=== PATIENT | male | born 1960 | race Hispanic/Latino ===

== ENCOUNTER 2020-06-28 15:55 | Inpatient (IN) | payer SELFPAY ==
[~2020-06-28 15:55] MED LIST: Iopamidol-370 76% 500 ML 1 ML ONE
[2020-06-28 16:20] LABS: #Eosinphils 0.2 thou/uL (0.0-0.7); #Lymphocytes 1.4 thou/uL (1.20-3.40); #Monocytes 0.5 thou/uL (0.11-0.59); #Neutrophils 2.3 thou/uL (1.40-6.50); %Basophils 1.1 % (0.0-1.0); %Eosinophils 4.1 % (0.0-10.0); %Lymphocytes 31.3 % (21.0-51.0); %Monocytes 10.4 % (0.0-10.0); %Neutrophils 53.1 % (42.0-75.0); Hemoglobin 12.3 g/dL (14.0-18.0); Mean Corpuscular HGB CONC 32.7 g/dL (32.0-36.0); Mean Corpuscular Hemoglobin 33.6 pg (27.0-31.0); Mean Platelet Volume 8.6 fL (7.4-10.4); Platelet Count 153 thou/uL (130-400); RBC Distribution Width 12.2 % (11.5-14.5); Red Blood Cell (RBC) Count 3.66 mill/uL (4.70-6.10); White Blood Cell (WBC) Count 4.3 thou/uL (4.8-10.8)
[2020-06-28 16:26] LABS: INR-International Normal Ratio 1.2; PTT 39.4 sec (22.9-36.1); Prothrombin Time 15.9 sec (12.0-14.7)
[2020-06-28 16:31] LABS: ALT (SGPT) 32 U/L (8-55); AST (SGOT) 141 U/L (5-34); Alkaline Phosphatase 147 U/L (40-110); Anion Gap 16 mmol/L (10-20); BUN (Urea Nitrogen) 5 mg/dL (8.4-25.7); Bilirubin, Total 2.1 mg/dL (0.2-1.2); Calc. Creatinine Clearance 0 mL/min (70-130); Calcium 8.3 mg/dL (7.8-10.44); Carbon Dioxide 20 mmol/L (22-29); Chloride 105 mmol/L (98-107); Estimated GFR-MDRD Greater than 90; Globulin 4.1 g/dL (2.4-3.5); Glucose 149 mg/dL (70-105); Potassium 3.7 mmol/L (3.5-5.1); Protein, Total 7.1 g/dL (6.0-8.3); Sodium 137 mmol/L (136-145)
[2020-06-28] MEDS ORDERED: Boostrix 0.5 ML (Tdap) VIAL ONE (16:34)
--- NOTE | 2020-06-28 16:34 | CT ---
Exam: CT cervical spine without contrast HISTORY: Trauma. Pain. COMPARISON: None FINDINGS: No craniocervical dissociation. Appropriate alignment of the lateral masses of C1 and C2. Intact odon toid process Appropriate alignment of the facets. Straightening of normal cervical lordosis may be due to patient position, muscle spasm or cervical co llar. Current study does not assess for ligamentous injury Soft tissue neck structures: No mass, lymphadenopathy or hematoma. No prevertebral soft tissue swelli ng. Upper mediastinum and lung apices: Chronic changes in the lung parenchyma Central spinal canal: Moderate central canal stenosis at C5-C6 secondary to broad-based discussed by complex. There is severe bilateral neural foraminal narrowing at C5-6-6. Vertebral bodies: Cervical spine vertebral body height is maintained. No fracture. IMPRESSION: 1. No fracture. 2. Significant degenerative changes at C5-C6.
--- NOTE | 2020-06-28 16:44 | CT ---
EXAM: CT Facial Bones WO Con PROVIDED CLINICAL HISTORY: Injury after a fall. Level 2 trauma. Patient fell 12 feet from a roof. COMPARISON: None FINDINGS: There is a nondisplaced fracture involving the midline anterior frontal bone as well as a nondisplace d fracture which is closely adjacent to a right craniotomy defect involving the squamosal portion of the right temporal bone with the fracture extending to the level of the craniotomy defect. There i s step-off of the more posterior aspect of the craniotomy defect which could be acute in origin as there is adjacent scalp soft tissue swelling in this region. There is a evidence of increased density within the right cerebral hemisphere as well as in the anter ior left frontal lobe compatible with areas of subarachnoid hemorrhage possibly tiny component of subdural hemorrhage on the left. Findings are better visualized on CT scan of the head, and please se e that report for further details. No fracture is seen involving the facial bones. There are periapical lucencies involving the posterio r left mandibular molar as well as incisor teeth of the maxilla bilaterally suggesting periapical abscesses. The temporomandibular joints are normally located. The orbits are normal and symmetric in appearance without post septal inflammatory stranding or hemor rhage appreciated. Minimal mucosal thickening is seen in each maxillary antrum. IMPRESSION: 1. Better delineated and described on CT scan of the head is evidence of an obliquely oriented fractu re involving the midline of the lower anterior frontal bone which extends into the lateral right frontal bone and into the right craniotomy defect. There is also a nondisplaced fracture involving th e squamosal portion of the right temporal bone with the fracture extending to the level of the craniotomy defect. There is also step-off in the region of the craniotomy defect which could be postt raumatic in origin as well. Scalp soft tissue swelling is seen overlying the right lateral frontal parietal region. 2. Evidence of subarachnoid hemorrhage in the bifrontal regions. This is better visualized on CT scan of the head. 3. No fracture is seen involving the facial bones. 4. Periapical lucencies involving mandibular maxillary teeth as described above suggesting periapical abscesses.
--- NOTE | 2020-06-28 16:50 | CT ---
Exam: Chest CT with contrast Abdomen CT with contrast Pelvic CT with contrast CT of the thoracic and lumbar spine HISTORY: Level 2 trauma. Fell off the roof of the house. Pain. Correlation: None COMPARISON: None FINDINGS: Chest CT: Mediastinum: No mass, lymphadenopathy or hematoma. Aorta: The thoracic and abdominal aorta have a normal caliber. No periaortic fat stranding Heart: Normal heart size. No significant pericardial effusion. Trachea and central bronchi: Patent Pleural spaces: No pleural effusions Right lung: Dependent atelectatic changes and scarring. No consolidation, contusion or suspicious mas s Left lung:Dependent atelectatic changes and scarring. No consolidation, contusion or suspicious mass Pneumothorax: None Abdomen CT: Gallbladder: Cholelithiasis, measuring 2.[address] evidence of cholecystitis. Portal vein: Patent Liver: Appropriate enhancement. Spleen: Appropriate enhancement. Splenomegaly, measuring 15 cm. Pancreas: Appropriate enhancement Adrenal glands: Appropriate enhancement Lymphadenopathy: No gastrohepatic, retrocrural or periportal lymphadenopathy Kidneys: Symmetric enhancement. No obstructive uropathy. Hypodensity in the right renal cortex measur es 1.7 cm/s hypodensity in the right renal cortex measures 2.5 cm. Both lesions are compatible with cyst. Subcentimeter hypodensity in the left. Bilaterally no obstructive uropathy. Mesentery: No mass, lymphadenopathy, free air or free fluid Alimentary canal: Limited evaluation by the lack of oral contrast. No small bowel obstruction. There is mild mucosal prominence of multiple small bowel loops. Correlate for developing enteritis involving jejunum. Ileocecal junction is normal. Fatty infiltration of the right hemicolon mucosa. Sc attered diverticulosis, without radiculitis. Appendix is not appreciated. No secondary signs of cholecystitis. Pelvis CT: No mass, nephropathy, free air or free fluid. Osseous structures: CHEST: Bilateral clavicles, scapula and proximal humeri are intact. There are no left acute rib fract ures. Remote rib fractures involving the posterior left ninth and 10th ribs. There are nondisplaced fractures involving the medial right second and third ribs near the costovertebral articulation. Inta ct sternum. Pelvis: Left and right obturator rings, iliac wings are intact. Sacrum is intact. No evidence of a le ft or right hip fracture. CT of the thoracic and lumbar spine: Vertebral body heights are maintained. No fracture. IMPRESSION: 1. Nondisplaced fracture involving the medial right second and third rib. 2. No posttraumatic change in the abdomen or pelvis. 3. Indeterminate lesions in the right kidney. Follow-up exam recommended Results study discussed with Dr. Zavala 06/28/2020 at 4:47 PM Code CR
--- NOTE | 2020-06-28 16:53 | CT ---
CT BRAIN NONCONTRAST: DATE: 06/28/2020 HISTORY: 59-year-old male status post acute head trauma, fall from roof of house Dr. Del Rosario discussed the findings by telephone with Dr. Lopez of the ER at 4:39 PM 06/28/2020 COMPARISON: none FINDINGS: There are old right lateral craniotomy changes involving the parietal bone and squamosal portion of t emporal bone. The posterior aspect of the craniotomy flap is medially displaced a distance of 5 to 6 mm, mildly dis placing adjacent right parietal gyri. Abutting the posterior edge of this displacement, a small rotated mildly comminuted fracture fragment is present straddling the intracranial and extracranial s paces. There is a minimally displaced acute linear right posterior parietal bone fracture located a couple o f centimeters posterior to the posterior edge of the displaced craniotomy flap. There is a nondisplaced acute right frontal bone fracture that superiorly leads to the anterior edge of the craniotomy, and inferiorly approaches midline. There are small regions of traumatic subarachnoid hemorrhage in the right lateral and upper parietal sulci. Within the lateral aspect of a small-moderate patchy region of right suprasylvian lateral frontal lob e encephalomalacia and gliosis, there is a small horizontal strip of hyperdensity which may represent acute blood. There is a broad thin region of left anterior inferior frontal subarachnoid hemorrhage and possibly a djacent petechial cortical hemorrhage. There is a right upper parietal scalp hematoma. No evidence of epidural or subdural hemorrhage. Ventricles are normal in size and configuration. No other significant mass effect, and no midline shift. Basal cisterns are patent. Diffuse brain parenchymal volume loss. Bilateral tympanomastoid cavities and the ethmoid and sphenoid sinuses, are clear. Frontal sinuses ar e nonpneumatized, aplastic. IMPRESSION: 1) acute, traumatic, nondisplaced right frontal bone fracture, and minimally displaced right posterio r parietal bone fracture. 2) the posterior aspect of a right old craniotomy flap is depressed medially. This is probably acute, associated tiny focal comminuted fragment. 3) mild, acute, traumatic right parietal subarachnoid hemorrhage. 4) mild to moderate acute, traumatic left anterior inferior frontal frontal subarachnoid hemorrhage a nd questionable petechial cortical hemorrhage. 5) small region of hyperdensity within a right lateral frontal region of encephalomalacia and gliosis . This probably represents a small focus of acute hemorrhage superimposed on the old insult. 6) no subfalcine herniation.
--- NOTE | 2020-06-28 17:06 | RAD ---
RIGHT KNEE FOUR VIEWS: 06/28/20 HISTORY: Fell off of a roof. There are marked arthritic changes of the knee. Prominent degenerative changes of the lateral and les ser changes of the medial and patellofemoral compartments. There is no fracture. Vascular calcificati ons are seen. IMPRESSION: No acute injury. POS: ANN
--- NOTE | 2020-06-28 17:07 | RAD ---
LEFT HAND THREE VIEWS: 06/28/20 HISTORY: Patient is status post fall with hand injury. COMPARISON: 12/21/07 study. An old injury of the tuft of the distal phalanx of the thumb are noted. Arthritic changes of the hand and wrist are present. No fractures are identified. IMPRESSION: No evidence of fracture. POS: ANN
--- NOTE | 2020-06-28 21:07 | HP ---
This is Stuart Hills PA-C dictating a report for Brendanrajinder Yogi Green DO. REQUESTING PHYSICIAN: Dr. Lopez. CONSULTATIONS: Neurosurgery, Dr. Sidhu. HISTORY OF PRESENT ILLNESS: The patient is a 59-year-old man, who was brought to the emergency department after reportedly falling off a 1st molly roof that he was working on. Reports are that bystanders did CPR on him for approximately 1 minute. When EMS arrived, the patient was awake, alert and chief complaint was headache. The patient was brought to the emergency department as a level 2 trauma activation, where he underwent evaluation and examination, was noted to have a skull fracture and subarachnoid hemorrhage, which time we were asked to evaluate the patient for admission and obtain neurosurgical consultations. ALLERGIES: NONE. CURRENT MEDICATIONS: None. PAST MEDICAL HISTORY: The patient states that he is diabetic, but does not take medicines for it. PAST SURGICAL HISTORY: Patient had previous brain surgery approximately 10 years ago. SOCIAL HISTORY: The patient states he drinks 3-4 beers per day. He denies drug or tobacco use. He is employed as a labor. He is Vincentian-speaking only. REVIEW OF SYSTEMS: A 10-point review of systems is negative as otherwise stated. PHYSICAL EXAMINATION: VITAL SIGNS: Blood pressure 145/87, heart rate 99, respirations 23, oxygen saturation is 96% on room air, temperature is 98.6. GENERAL: The patient is resting comfortably in bed. He is awake, conversant, appropriate. [place] Coma Scale is 15. Of note, a nurses medical assistants phlebotomists was used for the examination. HEENT. Head is normocephalic with abrasions noted to the right side of his scalp and small area of hematoma. Eyes, extraocular motion intact. PERRLA bilaterally. Ears are atraumatic without discharge. Nose is atraumatic without discharge. Oropharynx is clear. NECK: Nontender. Trachea is midline. No JVD. CHEST: Clear to auscultation with good inspiratory and expiratory effort. HEART: Regular rate and rhythm. ABDOMEN: Soft, flat, nontender with active bowel sounds. EXTREMITIES: Neurovascularly intact x4. The patient has good circuit court clerk strength and plantar flexion. The patient does have "pins and needles sensation" to his left upper extremity that has been improving. BACK: By report is atraumatic and nontender. LABORATORY FINDINGS: White blood cell count 4.3, hemoglobin 12.3, hematocrit 37.6, platelets 153. Sodium 137, potassium 3.7, chloride 105, CO2 of 20, BUN 5, creatinine 0.86, glucose 149, total bilirubin 2.1, AST 141, ALT 32, alkaline phosphatase 147, PT 16, INR 1.2, PTT 39. Blood alcohol 59. IMAGIN. CT of the brain without contrast shows acute traumatic nondisplaced right frontal bone fracture and minimally displaced right posterior parietal bone fracture. a. Posterior aspect of the right old craniotomy flap is depressed medially. This is probably acute associated tiny focal comminuted fragment. b. Mild, acute traumatic right parietal subarachnoid hemorrhage. c. [id number] acute traumatic left anterior inferior frontal subarachnoid hemorrhage and questionable petechial cortical hemorrhage. d. Small region of hyperdensity in the right lateral frontal region of encephalomalacia and gliosis. This probably represented a small focus of acute hemorrhage superimposed on the old insult. There is no subfalcine herniation. 2. CT of the face without contrast shows no acute fracture involving the facial bones. 3. CT of the C-spine without contrast shows no fracture. There is significant degenerative changes at C5-C6. 4. CT of the chest, abdomen, and pelvis with IV contrast shows a nondisplaced fracture involving the medial right 2nd and 3rd rib. There is no posttraumatic changes in the abdomen or pelvis. There is an indeterminate lesion involving the right kidney with routine followup recommended. Views of the right knee show no acute injury. Views of the left hand show no evidence of fracture. ASSESSMENT/PLAN: 1. Status post fall from roof. 2. Subarachnoid hemorrhage. 3. Skull fracture. 4. Nondisplaced fracture involving the medial right 2nd and 3rd ribs. 5. Altered mental status secondary to above. PLAN: Plan will be to admit the patient to the [facility] for frequent neuro exams with repeat head CT planned for the morning, sooner if the patient has not changed in his [place] Coma Scale. He will have pain control, pulmonary toilet, gastritis, and mechanical VTE prophylaxis. The patient was evaluated in the emergency department by MYRIAM Schwartz who scheduled his followup CT. The patient may have clear liquid diet. We will re-evaluate in the morning and begin discussing placement options. The patient was evaluated in the emergency department by Dr. Green prior to this dictation. Job ID: [id number]
[2020-06-28] MEDS ORDERED: Cyclobenzaprine 10 MG TAB PO PRN (21:39)
[2020-06-28] MEDS ORDERED: Dextrose 5% in Water 1,000 ML IV PRN (21:39)
[2020-06-28] MEDS ORDERED: traMADol HCl 50 MG TAB PO PRN (21:39)
[2020-06-28] MEDS ORDERED: Ondansetron PF 4 MG/2 ML Vial IVP PRN (21:39)
[2020-06-28] MEDS ORDERED: Dextrose 50% Abboject 50 ML SYRINGE SLOW IVP PRN (21:39)
[2020-06-28] MEDS ORDERED: Insulin Regular 300 UNITS/3 ML VIAL SC PRN ×2 (21:39)
[2020-06-28] MEDS ORDERED: Ondansetron ODT 4 MG TAB PO PRN (21:39)
[2020-06-28] MEDS: Acetaminophen 500 MG TAB PO SCH (23:20)
[2020-06-28] MEDS: Famotidine 20 MG TAB PO SCH (23:20)
[2020-06-28] MEDS: Oxazepam 10 MG CAP PO SCH (23:20)
[2020-06-28] MEDS: Sodium Chloride 0.9% 1,000 ML IV SCH (23:21)
[2020-06-29 00:19] VITALS: BMI 31.0
--- NOTE | 2020-06-29 01:33 | CON ---
DATE OF CONSULTATION: 06/28/2020 HISTORY OF PRESENT ILLNESS: Patient is a 59-year-old male, with a past medical history of EtOH abuse with prior right-sided craniotomy approximately 10 years ago possibly due to trauma or infection (family and pt is unsure), who presented to the emergency department via EMS after falling off a story roof. Patient was evaluated with trauma scans on arrival and found to have fracture along the right parietal bone and along the right frontal bone extending towards the midline as well as traumatic subarachnoid hemorrhage along the left frontal region and left parietal region. There is slight displacement of the right craniotomy flap inferiorly, particularly on the posterior aspect. There is a small amount of traumatic subarachnoid hemorrhage around the posterior displacement, in the right parietal lateral, and left frontal anterior regions. Patient with a GCS of 15, A and O x4, nonfocal in his neurologic exam. I used a crystal finisher during this exam and questioning the patient. He does drink approximately 3 to 12 beers per day per his daughter. His INR is 1.2. His platelets were within normal limits. PTT was 39.4 and PT was 15.9- both slightly elevated. His LFTs were also slightly elevated as well. Patient also has several rib fractures. He is being evaluated by the Trauma Service. Neurosurgery consulted for his intracranial injuries. PAST MEDICAL HISTORY: Chronic EtOH abuse, right-sided craniotomy approximately 10 years ago for a possible trauma. PAST SURGICAL HISTORY: Right-sided craniotomy 10 years ago. SOCIAL HISTORY: Patient lives at home with his family. He drinks approximately 3 to 12 beers per day. Denies any drug use. He does not smoke. REVIEW OF SYSTEMS: Per HPI. PHYSICAL EXAMINATION: VITAL SIGNS: Stable. BP is 145/87, pulse is 99, respirations 23, temperature is 98.6, and patient is 96% on room air. GENERAL: Awake, alert, in no acute distress. Oriented x3. HEAD: He has some soft tissue swelling and abrasion along the right parietal aspect. There is no obvious laceration that would require repair or would that would represent open fx. EYES: PERRLA. Extraocular movements intact. ENT: [place], intact, moist. He has normal voice. No obvious CSF or otorhinorrhea. NECK: Nontender. Free active range of motion. No meningismus or nuchal rigidity. I cleared his C-collar at the bedside during my exam. RESPIRATORY: Symmetric chest expansion. No evidence of dyspnea. CARDIOVASCULAR: Regular rate and rhythm. MUSCULOSKELETAL: Has some abrasions along the left upper extremity. No obvious deformities. Free active range of motion of the extremities. No focal motor weakness. NEUROLOGIC: Oriented x3. GCS 15. Grossly nonfocal neuro exam. ASSESSMENT AND PLAN: Patient had a fall from a roof and has a fracture along the right parietal and right frontal bone with some slight displacement of the right craniotomy flap as well as some traumatic subarachnoid hemorrhage along the left frontal and right parietal region. Patient does not reportedly take any anticoagulants and should not be given any during his admission or once he is discharged. I do not anticipate any acute neurosurgical intervention at this time. We will monitor him closely overnight with q.2 neuro checks and keep his blood pressure systolic below 150. I have ordered a repeat a.m. CT for additional evaluation at 5 tomorrow morning. Defer ETOH abuse and chance for wd to trauma. Discussed this plan with Dr. Sidhu, who is in agreement and will follow along. Job ID: [id number] MTDD
[2020-06-29 03:37] LABS: #Eosinphils 0.1 thou/uL (0.0-0.7); #Lymphocytes 0.8 thou/uL (1.20-3.40); #Monocytes 0.4 thou/uL (0.11-0.59); #Neutrophils 2.1 thou/uL (1.40-6.50); %Basophils 0.9 % (0.0-1.0); %Eosinophils 1.9 % (0.0-10.0); %Lymphocytes 24.6 % (21.0-51.0); %Monocytes 12.5 % (0.0-10.0); %Neutrophils 60.1 % (42.0-75.0); Hemoglobin 10.3 g/dL (14.0-18.0); Mean Corpuscular HGB CONC 33.6 g/dL (32.0-36.0); Mean Corpuscular Hemoglobin 34.4 pg (27.0-31.0); Mean Platelet Volume 8.4 fL (7.4-10.4); Platelet Count 119 thou/uL (130-400); RBC Distribution Width 12.1 % (11.5-14.5); Red Blood Cell (RBC) Count 2.99 mill/uL (4.70-6.10); White Blood Cell (WBC) Count 3.4 thou/uL (4.8-10.8)
[2020-06-29 03:52] LABS: Anion Gap 11 mmol/L (10-20); BUN (Urea Nitrogen) 4 mg/dL (8.4-25.7); Calc. Creatinine Clearance 165 mL/min (70-130); Calcium 7.6 mg/dL (7.8-10.44); Carbon Dioxide 22 mmol/L (22-29); Chloride 106 mmol/L (98-107); Estimated GFR-MDRD Greater than 90; Glucose 132 mg/dL (70-105); Potassium 3.4 mmol/L (3.5-5.1); Sodium 136 mmol/L (136-145)
[2020-06-29] MEDS: Oxazepam 10 MG CAP PO SCH ×3 (07:02→20:43)
[2020-06-29] MEDS: Acetaminophen 500 MG TAB PO SCH ×4 (07:02→23:43)
[2020-06-29] MEDS: Sodium Chloride 0.9% 1,000 ML IV SCH (07:03)
--- NOTE | 2020-06-29 08:12 | CT ---
PRELIMINARY REPORT/DIRECT RADIOLOGY/EMERGENCY AFTER HOURS PROCEDURE: EXAM: CT Head Without Intravenous Contrast. CLINICAL HISTORY: F/u tSAH TECHNIQUE: Axial computed tomography images of the head/brain without intravenous contrast. COMPARISON: None provided. FINDINGS: There remains surgical changes from right lateral parietal craniotomy. There remains some medial displacement of the craniotomy flap. Traumatic subarachnoid hemorrhage in the right lateral side again noted and unchanged. There remains left anterior frontal subarachnoid hemorrhage. Minima l petechial hemorrhages in this region are noted and unchanged. No new hemorrhages identified. The ventricles remain normal and no midline displacement. The basilar cisterns are maintained. Ther e is a significant right upper parietal and temporal scalp hematoma. IMPRESSION: No significant change in the patient's traumatic subarachnoid hemorrhage in the right lat eral temporal parietal region. There remains no change in left anterior frontal subarachnoid hemorrhage. Minimal petechial hemorrhages noted in the left frontal region unchanged. No new hemorrh age or hematoma. Large right upper parietal and temporal scalp hematoma. ELECTRONICALLY SIGNED BY: Micaela Alba DO Jun 29, 2020 4:40:51 AM EXCEL ANALYST FINAL REPORT CT BRAIN WITHOUT CONTRAST: History: Hemorrhage. Comparison: CT examination prior day. Findings/impression: Majority of the findings are concordant with the initial report. There is new subarachnoid hemorrhage along the right inferior frontal sulcus. The right parietal subarachnoid hemorrhage has slightly increased. Continued depression of the craniotomy bone flap and superimposed right parietal bone fracture which is not significantly impacted. There is also a sagittally oriented right frontal bone fracture without significant depression or displacement. Left frontal subarachnoid hemorrhages partial resolving. Concern for intraparenchymal hemorrhage of t he anterior left temporal lobe. Mild right parietotemporal sulcal effacement. Patient is at risk for brain herniation through the pos terior right craniotomy defect. Transcribed Date/Time: 06/29/2020 8:17 AM
[2020-06-29] MEDS ORDERED: Potassium Chloride 20 MEQ/100 ML PREMIX BAG IVPB SCH (08:15)
--- NOTE | 2020-06-29 08:15 | RAD ---
XR Chest 1 View Portable History: Follow-up Comparison: None. Findings: Lungs are mildly hypoinflated with atelectasis. No pneumothorax. No significant effusion. Right upper rib fractures are not further displaced. Impression: No further displacement of rib fractures nor new pneumothorax.
[2020-06-29] MEDS: Famotidine 20 MG TAB PO SCH ×2 (09:20→19:22)
[2020-06-29] MEDS ORDERED: Potassium Chloride 20 MEQ TAB PO SCH (11:15)
--- NOTE | 2020-06-29 12:32 | PRG ---
DATE OF SERVICE: 06/29/2020 SUBJECTIVE: The patient is seen and examined, I agree with Michelle Azevedo's evaluation on 06/28/2020. The patient is a 59-year-old male with a history of a prior right-sided craniotomy 10 years ago for trauma, who fell off his roof yesterday, striking the right side of his head. He is currently alert and without complaints and was interviewed in the company of his daughter, who translated. The daughter reports that she is noticing he is slurring slightly more than he had been previously. The patient's CT scan reveals some depression of the right parietal skull flap from the previous surgery as well as some right parietal traumatic subarachnoid hemorrhage, this was stable on followup CT. IMPRESSION AND PLAN: The patient can safely be mobilized for dismissal. I will plan on a four-week followup head CT. He will likely have a mild cosmetic deformity related to depression in the right parietal flap, but I do not think this mandates elevation. Discussed this at length with the patient and his daughter. Job ID: [id number]
[2020-06-29] MEDS ORDERED: Magnesium Sulfate 2 GM in Sodium Chloride 0.9% 100 ML IVPB SCH (13:45)
[2020-06-29] MEDS ORDERED: Magnesium 2 GM/50 ML 2 GM in Premix Bag 1 BAG IVPB SCH (14:00)
--- NOTE | 2020-06-29 14:05 | PRG ---
DATE OF SERVICE: 06/29/2020 The patient was seen by Dr. Peña Green. SUBJECTIVE: Mr. Wray is a 59-year-old male, presented status post fall from one story roof at work, reports bystander CPR for 1 minute. The patient found to have a skull fracture and subarachnoid hemorrhage. The patient had a previous craniectomy with a flap replacement, this is where he had a fracture. This morning, he is awake and alert, he is watching television. Repeat head CT generally unchanged. The patient states that he is in no pain including no headache, no nausea, no vomiting, no dizziness. He is hungry and wants a full diet. He is tolerating his clear-liquid diet well. Remained hemodynamically stable. Neurosurgery has cleared the patient. OBJECTIVE: VITAL SIGNS: Temperature is 97.9, blood pressure 146/80, heart rate is 72, breathing 16 times per minute, and 96% on room air. GENERAL: A 59-year-old male, sitting up, in no acute distress. Nontoxic appearing. HEENT: Does have a slight deformity to the right skull with an abrasion. Trachea is midline. RESPIRATORY: Equal rise and fall. Bilateral breath sounds clear to auscultation of upper and lower lobes bilaterally. CARDIOVASCULAR: Regular rate and rhythm. ABDOMEN: Soft and nontender. PELVIS: Stable. MUSCULOSKELETAL: Moves extremities well. NEUROLOGIC: Alert and oriented to person, place, time, and event. GCS is 15. No gross deficits are appreciated. PSYCHIATRIC: Normal mood and affect. SKIN: Warm and dry. LABORATORY DATA: From today: White blood cell count 3.4, platelets are 119, and hemoglobin and hematocrit are 10.3 and 30.6 respectively. Sodium is 136, potassium 3.4, chloride is 106, CO2 is 22, creatinine 0.65, glucose 132, and calcium is 7.6. Magnesium of 1.7. Chest x-ray generally unchanged. ASSESSMENT: 1. Fall from roof. 2. Subarachnoid hemorrhage with skull fracture. 3. Nondisplaced fracture involving the medial right 2nd and 3rd ribs. 4. Altered mental status, has improved. PLAN: 1. Move the patient to Surgery [facility]. 2. Routine neuro exams. 3. Pain control as needed. 4. Hope to discharge in the ensuing days as soon as the patient is able to ambulate, tolerates the diet, spontaneously voids. We will be able to discharge tomorrow, follow up with Neurosurgery, or possibly even later this afternoon. 5. Continue all other supportive care. Discussed with the bedside RN, updated the patient, discussed with Dr. Sidhu with Neurosurgery. Job ID: [id number]
[2020-06-29 15:09] LABS: SARS-CoV-2 MS2 Positive; SARS-CoV-2 N Gene Negative; SARS-CoV-2 S Gene Negative; SARS-CoV-2 by NAA Not Detected (NotDetected); SARS-CoV-2 orf1ab Negative
[2020-06-29] MEDS: traMADol HCl 50 MG TAB PO PRN (19:22)
[2020-06-30] MEDS: Acetaminophen 500 MG TAB PO SCH (05:06)
[2020-06-30] MEDS: Oxazepam 10 MG CAP PO SCH (05:06)
[2020-06-30] MEDS: traMADol HCl 50 MG TAB PO PRN (05:07)
[2020-06-30 07:58] VITALS: BP 139/79; TEMP 97.8
[2020-06-30] MEDS: Famotidine 20 MG TAB PO SCH (08:39)
--- NOTE | 2020-06-30 12:51 | DIS ---
DATE OF ADMISSION: 06/28/2020 DATE OF DISCHARGE: 06/30/2020 DISCHARGING PHYSICIAN: Claude Jim MD. CONSULTING PHYSICIAN: 1. Dr. Peña Green. 2. Dr. Sidhu with Neurosurgery. ADMITTING DIAGNOSES: 1. Fall from roof. 2. Subarachnoid hemorrhage. 3. Skull fracture. 4. Right rib fractures. DISCHARGE DIAGNOSES: 1. Fall from roof. 2. Subarachnoid hemorrhage. 3. Skull fracture. 4. Right rib fractures. Nonoperative approach. DISCHARGE MEDICATIONS: Tylenol every 6 hours as needed. HOSPITAL COURSE: Patient was admitted through the emergency department, admitted to the [facility] for close neuro-checks. Neurosurgery was consulted. No interventions at this time. Repeat head CT on hospital day #1 shows no change in his scattered subarachnoid hemorrhage. Mental status returned to baseline. Patient was sitting up, watching TV. He did have a little bit as left-sided deficit about his face and possibly some slurred speech that improved throughout the day. Neurosurgery was notified of this likely secondary to his right-sided subarachnoid hemorrhage. No skull fracture. No other intervention at this time. Patient tolerated diet well. He has ambulated. He was listing apparently a little bit on hospital day #1 to the left. On the date of discharge, I was able to walk the patient in the hallway, had a steady gait on his own accord with no change in gait. He reports no dizziness, no change in vision, no nausea, no vomiting, no chest pain, no shortness of air. His SpO2 is preserved. Patient feels well and requests discharge. I have discussed follow up and he verbalized understanding as Dr. Sidhu told him about the followup and he was able to repeat the same. Patient was advised to not climb ladders specifically if he was drinking given his skull fracture and verbalized understanding of the same. He remained stable on the date of discharge. PHYSICAL EXAMINATION: VITAL SIGNS: On date of discharge vital signs; temperature is 98.8, blood pressure is 139/79, heart rate is 75, respiratory rate is 18, breathing 18 times per minute, and saturating 100% on room air. GENERAL: This is a 59-year-old male sitting up in no acute distress. HEENT: Normocephalic. Does have trauma noted about the right skull. Slight depression is noted. No active bleeding. No blood from the ears or nares. Pupils are equal and reactive. Extraocular movements are intact. Trachea is midline. RESPIRATORY: Equal rise and fall. Bilateral breath sounds. Clear to auscultation. CARDIOVASCULAR: Regular rate and rhythm. ABDOMEN: Soft and nontender. Pelvis is stable. MUSCULOSKELETAL: He moves extremities well. NEUROLOGIC: Alert and oriented to person, place, time, and event. GCS is 15. He does have slight facial droop about the left. Otherwise, cranial nerves 2 through 12 are normal. He has a normal gait that is steady and stable. SKIN: Warm and dry. PSYCH: Normal mood and affect. LABORATORY DATA: There is no laboratory data aside from a glucose of 162 to review today. Followup will be with Dr. Sidhu in 2 to 4 weeks. Patient verbalized understanding the same. This was placed in the chart. Patient was given opportunity to answer questions. He has a ride that is coming. All questions were answered at the bedside through an news writer. Patient was given return precautions including worsening headache, dizziness, trouble walking, shortness of breath, chest pain, verbalized understanding of the same and was able to repeat this back, coordinated with the bedside RN. Greater than 30 minutes was taken in discharge planning of this patient. Job ID: [id number]
== END 2020-06-30 12:55 | disposition home or self-care (01) | DRG 83 ==
LOC: ERS 15:55 → IMCU/EMU 16:59 → ONC 06-29 11:34
PROVIDERS: ADMIT Surgery; ATTEND Surgery
DX: S06.6X9A Traumatic subarachnoid hemorrhage with loss of consciousness of unspecified duration, initial encounter (principal); S22.41XA Multiple fractures of ribs, right side, initial encounter for closed fracture; Z20.828 Contact with and (suspected) exposure to other viral communicable diseases; W13.2XXA Fall from, out of or through roof, initial encounter; S02.91XA Unspecified fracture of skull, initial encounter for closed fracture; R40.2413 Glasgow coma scale score 13-15, at hospital admission; F10.10 Alcohol abuse, uncomplicated; E11.9 Type 2 diabetes mellitus without complications
CPT/HCPCS: 36415; 36416; 70450; 70486; 71045; 71260; 72125; 74177; 80048; 80053; 80307; 83735; 85025; 85610; 85730; 87635; 90471; 90715; 96365; G0390; J0690; J3475; Q9967; U0003

== ENCOUNTER 2020-08-31 12:49 | Outpatient (CLI) | payer OTHER ==
--- NOTE | 2020-08-31 13:24 | CT ---
Head CT without contrast 08/31/2020: COMPARISON: 06/29/2020 HISTORY: History of subdural hematoma status post surgery, trauma in June 2020 TECHNIQUE: Axial CT imaging at 5 mm intervals from vertex through skull base without contrast FINDINGS: The visualized paranasal sinuses and mastoid air cells appear well-aerated. Stable multifocal displaced calvarial fracture on the right with stable inferior posterior depression . There is nondisplaced fracture component involving the anterior aspect of the right frontal bone, best seen on axial image 12, stable as well. The 06/29/2020 CT examination demonstrated scattered areas of bilateral extra-axial hemorrhage. On th is exam the previously noted left frontal and right frontal subarachnoid hemorrhage has resolved. There is no midline shift or mass effect. Extra-axial hemorrhage noted on the prior examination withi n the left middle cranial fossa has resolved. On this examination there is subdural increased density in the right frontal region measuring up to 3 mm in transverse dimension on axial image 12 an d 3-4 mm on axial image 18. These findings are most consistent with a very small right-sided subdural hematoma. A degree of dural thickening in this region is a possibility as well IMPRESSION: Small volume residual subdural hemorrhage in the right frontal region measuring up to 3-4 mm in transverse dimension. No midline shift or mass effect. Multiple areas of previously noted intracranial hemorrhage have resolved as described above. CODE T
== END 2020-08-31 12:50 | disposition home or self-care (01) ==
LOC: BICCT 12:49
PROVIDERS: ATTEND Neurological Surgery
DX: S06.6X9D Traumatic subarachnoid hemorrhage with loss of consciousness of unspecified duration, subsequent encounter (principal)
CPT/HCPCS: 70450

== ENCOUNTER 2020-12-30 15:08 | Inpatient (IN) | payer MEDICAID, SELFPAY ==
[~2020-12-30 15:08] MED LIST changes: +Succinylcholine 200 MG/10 ml SYRINGE FS ONE
[2020-12-30 17:14] LABS: #Lymphocytes 0.4 thou/uL (1.20-3.40); #Monocytes 0.4 thou/uL (0.11-0.59); %Basophils 0.4 % (0.0-1.0); %Eosinophils 0.2 % (0.0-10.0); %Lymphocytes 7.8 % (21.0-51.0); %Monocytes 7.5 % (0.0-10.0); %Neutrophils 84.1 % (42.0-75.0); Hemoglobin 8.7 g/dL (14.0-18.0); Mean Corpuscular HGB CONC 31.7 g/dL (32.0-36.0); Mean Corpuscular Hemoglobin 29.3 pg (27.0-31.0); Mean Corpuscular Volume 92.6 fL (78.0-98.0); Mean Platelet Volume 11.7 fL (7.4-10.4); Platelet Count 34 thou/uL (130-400); RBC Distribution Width 17.1 % (11.5-14.5); Red Blood Cell (RBC) Count 2.95 mill/uL (4.70-6.10); White Blood Cell (WBC) Count 4.7 thou/uL (4.8-10.8)
[2020-12-30] MEDS ORDERED: Octreotide Acetate 100 MCG/ML VIAL SLOW IVP SCH (17:15)
[2020-12-30] MEDS ORDERED: Octreotide Acetate 1,250 MCG in Sodium Chloride 0.9% 250 ML 250 ML IVPB SCH (17:15)
[2020-12-30 17:19] LABS: INR-International Normal Ratio 2.2; PTT 49.4 sec (22.9-36.1); Prothrombin Time 25.1 sec (12.0-14.7)
[2020-12-30 17:26] LABS: Anisocytosis SLIGHT = 6-15 cells (100X) (0-5/hpf); MDiff Complete? YES; Platelet Morphology Comment Appears Decreased; Polychromasia SLIGHT = 2-3 cells (100X) (0-2/hpf)
[2020-12-30] MEDS ORDERED: Lorazepam 2 MG/ML VIAL ONE (17:26)
[2020-12-30] MEDS ORDERED: cefTRIAXone\\ROCEPHIN 1 GM VIAL ONE (17:27)
[2020-12-30] MEDS ORDERED: Octreotide Acetate 100 MCG/ML VIAL ONE (17:27)
[2020-12-30] MEDS ORDERED: Ondansetron PF 4 MG/2 ML Vial ONE (17:27)
[2020-12-30] MEDS ORDERED: Pantoprazole 40 MG VIAL ONE (17:27)
[2020-12-30 17:34] LABS: ALT (SGPT) 18 U/L (8-55); AST (SGOT) 113 U/L (5-34); Albumin 2.4 g/dL (3.5-5.0); Alkaline Phosphatase 162 U/L (40-110); Anion Gap 19 mmol/L (10-20); BUN (Urea Nitrogen) 12 mg/dL (8.4-25.7); Bilirubin, Total 5.5 mg/dL (0.2-1.2); Calc. Creatinine Clearance 0 mL/min (70-130); Calcium 7.4 mg/dL (7.8-10.44); Carbon Dioxide 19 mmol/L (22-29); Chloride 93 mmol/L (98-107); Globulin 3.8 g/dL (2.4-3.5); Glucose 163 mg/dL (70-105); Lipase 19 U/L (8-78); Magnesium 1.6 mg/dL (1.6-2.6); Potassium 4.3 mmol/L (3.5-5.1); Protein, Total 6.2 g/dL (6.0-8.3); Sodium 127 mmol/L (136-145)
[2020-12-30] MEDS ORDERED: Pantoprazole 80 MG, Admixture Fee 1 EACH in Sodium Chloride 0.9% 100 ML IVPB SCH (19:30)
[2020-12-30] MEDS ORDERED: Ondansetron PF 4 MG/2 ML Vial IVP PRN (20:22)
[2020-12-30 20:28] LABS: #Lymphocytes 0.7 thou/uL (1.20-3.40); #Monocytes 0.4 thou/uL (0.11-0.59); #Neutrophils 3.8 thou/uL (1.40-6.50); %Basophils 0.5 % (0.0-1.0); %Eosinophils 0.1 % (0.0-10.0); %Lymphocytes 14.3 % (21.0-51.0); %Monocytes 8.2 % (0.0-10.0); Hemoglobin 7.5 g/dL (14.0-18.0); Mean Corpuscular HGB CONC 32.9 g/dL (32.0-36.0); Mean Corpuscular Hemoglobin 30.5 pg (27.0-31.0); Mean Corpuscular Volume 92.6 fL (78.0-98.0); Mean Platelet Volume 11.5 fL (7.4-10.4); Platelet Count 26 thou/uL (130-400); Red Blood Cell (RBC) Count 2.46 mill/uL (4.70-6.10); White Blood Cell (WBC) Count 4.9 thou/uL (4.8-10.8)
[2020-12-30] MEDS ORDERED: Magnesium 2 GM/50 ML 2 GM in Premix Bag 1 BAG IVPB SCH (20:30)
[2020-12-30] MEDS ORDERED: Calcium Gluconate 100 MG/ML 10 ML IVPB SCH (20:30)
[2020-12-30] MEDS ORDERED: Sodium Bicarbonate 150 MEQ in Dextrose 5% in Water 1,000 ML IV SCH (20:30)
[2020-12-30] MEDS ORDERED: Calcium Gluconate 4.6 MEQ in Sodium Chloride 0.9% 100 ML IVPB SCH (20:45)
[2020-12-31 04:25] LABS: #Lymphocytes 0.5 thou/uL (1.20-3.40); #Monocytes 0.3 thou/uL (0.11-0.59); #Neutrophils 3.4 thou/uL (1.40-6.50); %Basophils 0.2 % (0.0-1.0); %Eosinophils 0.1 % (0.0-10.0); %Lymphocytes 12.2 % (21.0-51.0); %Monocytes 7.9 % (0.0-10.0); %Neutrophils 79.6 % (42.0-75.0); Hemoglobin 8.2 g/dL (14.0-18.0); Mean Corpuscular Hemoglobin 30.5 pg (27.0-31.0); Mean Corpuscular Volume 92.4 fL (78.0-98.0); Mean Platelet Volume 11.2 fL (7.4-10.4); Platelet Count 25 thou/uL (130-400); RBC Distribution Width 16.6 % (11.5-14.5); Red Blood Cell (RBC) Count 2.69 mill/uL (4.70-6.10); White Blood Cell (WBC) Count 4.2 thou/uL (4.8-10.8)
[2020-12-31 04:39] LABS: ALT (SGPT) 19 U/L (8-55); AST (SGOT) 107 U/L (5-34); Albumin 2.4 g/dL (3.5-5.0); Alkaline Phosphatase 135 U/L (40-110); Anion Gap 20 mmol/L (10-20); BUN (Urea Nitrogen) 18 mg/dL (8.4-25.7); Calc. Creatinine Clearance 82 mL/min (70-130); Calcium 7.3 mg/dL (7.8-10.44); Carbon Dioxide 16 mmol/L (22-29); Chloride 99 mmol/L (98-107); Globulin 3.8 g/dL (2.4-3.5); Glucose 162 mg/dL (70-105); Potassium 4.7 mmol/L (3.5-5.1); Protein, Total 6.2 g/dL (6.0-8.3); Sodium 130 mmol/L (136-145)
[2020-12-31] MEDS ORDERED: Furosemide 20 MG/2 ML VIAL SLOW IVP SCH (06:00)
[2020-12-31 06:14] LABS: SARS-CoV-2 NAA Rapid Test Not Detected (NotDetected)
[2020-12-31] MEDS: Pantoprazole 80 MG in Sodium Chloride 0.9% 100 ML IVPB SCH ×2 (06:54→16:56)
[2020-12-31] MEDS: Nicotine 14 MG PATCH TD SCH ×2 (07:10→21:26)
[2020-12-31 07:49] LABS: Hemoglobin 7.8 g/dL (14.0-18.0); Mean Corpuscular HGB CONC 32.4 g/dL (32.0-36.0); Mean Corpuscular Hemoglobin 29.9 pg (27.0-31.0); Mean Corpuscular Volume 92.2 fL (78.0-98.0); Mean Platelet Volume 11.1 fL (7.4-10.4); Platelet Count 27 thou/uL (130-400); RBC Distribution Width 16.5 % (11.5-14.5); Red Blood Cell (RBC) Count 2.61 mill/uL (4.70-6.10); White Blood Cell (WBC) Count 3.5 thou/uL (4.8-10.8)
[2020-12-31] MEDS: Albumin 25% 25 GM/100 ML BOT IVPB SCH ×2 (08:01→17:24)
[2020-12-31 08:26] LABS: Band 2 % (5-11); Eosinophils 3 % (0-10); Hypochromia SLIGHT = 6-15 cells (100X) (0-5/hpf); Lymphocytes 15 % (21-51); MDiff Complete? YES; Monocytes 10 % (0-10); Neutrophil 70 % (42-75); Ovalocytes SLIGHT = 2-5 cells (100X) (0-1/hpf); Platelet Morphology Comment Appears Decreased; Polychromasia SLIGHT = 2-3 cells (100X) (0-2/hpf)
[2020-12-31 11:54] LABS: #Lymphocytes 0.5 thou/uL (1.20-3.40); #Monocytes 0.3 thou/uL (0.11-0.59); %Basophils 0.2 % (0.0-1.0); %Lymphocytes 16.9 % (21.0-51.0); %Monocytes 9.5 % (0.0-10.0); %Neutrophils 73.4 % (42.0-75.0); Hemoglobin 7.3 g/dL (14.0-18.0); Mean Corpuscular Hemoglobin 30.2 pg (27.0-31.0); Mean Corpuscular Volume 91.5 fL (78.0-98.0); Mean Platelet Volume 10.7 fL (7.4-10.4); Platelet Count 24 thou/uL (130-400); RBC Distribution Width 16.6 % (11.5-14.5); Red Blood Cell (RBC) Count 2.41 mill/uL (4.70-6.10); White Blood Cell (WBC) Count 2.7 thou/uL (4.8-10.8)
[2020-12-31] MEDS ORDERED: Sodium Bicarbonate 150 MEQ in Dextrose 5% in Water 1,000 ML IV SCH (13:15)
[2020-12-31] MEDS ORDERED: Famotidine/PF 20 mg/2ml Vial ONE (14:18)
[2020-12-31] MEDS ORDERED: PHENYLEPHRINE-NS 100 MCG/ML 10 ML SYRINGE ONE (14:47)
[2020-12-31] MEDS ORDERED: Succinylcholine 200 MG/10 ml SYRINGE FS ONE (14:47)
[2020-12-31] MEDS ORDERED: Lidocaine 1% PF 5 ML VIAL ONE (14:47)
[2020-12-31] MEDS ORDERED: Ondansetron PF 4 MG/2 ML Vial ONE (14:47)
[2020-12-31] MEDS ORDERED: Metoclopramide HCl 10 MG/2 ML VIAL ONE (14:47)
[2020-12-31] MEDS ORDERED: Promethazine HCl 25 MG/ML VIAL IM PRN (15:32)
[2020-12-31] MEDS ORDERED: Promethazine HCl 25 MG/ML VIAL SLOW IVP PRN (15:32)
[2020-12-31] MEDS ORDERED: Ondansetron HCl/PF 4 MG/2 ML Vial IVP PRN (15:32)
[2020-12-31 16:20] LABS: #Lymphocytes 0.5 thou/uL (1.20-3.40); #Monocytes 0.2 thou/uL (0.11-0.59); %Basophils 0.3 % (0.0-1.0); %Eosinophils 0.3 % (0.0-10.0); %Lymphocytes 17.4 % (21.0-51.0); %Monocytes 8.9 % (0.0-10.0); %Neutrophils 73.2 % (42.0-75.0); Hemoglobin 7.1 g/dL (14.0-18.0); Mean Corpuscular HGB CONC 32.5 g/dL (32.0-36.0); Mean Corpuscular Hemoglobin 29.7 pg (27.0-31.0); Mean Corpuscular Volume 91.6 fL (78.0-98.0); Mean Platelet Volume 10.4 fL (7.4-10.4); Platelet Count 33 thou/uL (130-400); RBC Distribution Width 17.1 % (11.5-14.5); Red Blood Cell (RBC) Count 2.39 mill/uL (4.70-6.10); White Blood Cell (WBC) Count 2.7 thou/uL (4.8-10.8)
[2020-12-31 16:35] LABS: Albumin 2.6 g/dL (3.5-5.0); Anion Gap 13 mmol/L (10-20); BUN (Urea Nitrogen) 21 mg/dL (8.4-25.7); BUN/Creatinine Ratio 20.39; Calc. Creatinine Clearance 98 mL/min (70-130); Calcium 7.2 mg/dL (7.8-10.44); Carbon Dioxide 26 mmol/L (22-29); Chloride 99 mmol/L (98-107); Glucose 173 mg/dL (70-105); Phosphorus 2.5 mg/dL (2.3-4.7); Potassium 3.6 mmol/L (3.5-5.1); Sodium 134 mmol/L (136-145)
[2020-12-31] MEDS ORDERED: cefTRIAXone\\ROCEPHIN 1 GM in Sodium Chloride 0.9% 100 ML IVPB SCH (18:00)
[2020-12-31] MEDS ORDERED: Prevnar 13-Val Conj/PF 0.5 ML SYRINGE IM ONE (21:00)
[2020-12-31] MEDS: Lorazepam 2 MG/ML VIAL SLOW IVP PRN (21:21)
[2020-12-31] MEDS: Octreotide Acetate 1,250 MCG in Sodium Chloride 0.9% 250 ML 250 ML IVPB SCH (21:28)
[2020-12-31] MEDS ORDERED: Acetaminophen 325 MG TAB PO SCH (23:45)
[2021-01-01 01:40] LABS: Bacteria/HPF None Seen HPF (None Seen); Bilirubin Negative (Negative); Blood, Urine Negative (Negative); Clarity Clear (Clear); Glucose, Urine (Dipstick) Normal (Negative); Ketone, Urine Negative (Negative); Leukocyte 25 Leu/uL (Negative); Nitrite Negative (Negative); Protein, Urine (Dipstick) Negative (Neg-Trace); RBC/HPF 0-3 HPF (0-3); Specific Gravity, Urine 1.028 (1.002-1.036); Squamous Epithelial 0-3 HPF (0-3); WBC/HPF 0-3 HPF (0-3)
[2021-01-01 01:45] LABS: Urine Culture Reflex Yes Yes
[2021-01-01 02:00] LABS: Creatinine, Urine 113.51 mg/dL (63-166); Protein, Urine Random Quant Less than 10 mg/dL (1-14); Sodium, Urine 20 mmol/L (Not Available); Urea Nitrogen, Random Urine 799 mg/dl
[2021-01-01 02:27] LABS: #Lymphocytes 0.5 thou/uL (1.20-3.40); #Monocytes 0.3 thou/uL (0.11-0.59); #Neutrophils 1.6 thou/uL (1.40-6.50); %Basophils 0.3 % (0.0-1.0); %Eosinophils 0.6 % (0.0-10.0); %Lymphocytes 19.6 % (21.0-51.0); %Monocytes 10.8 % (0.0-10.0); %Neutrophils 68.6 % (42.0-75.0); Hemoglobin 7.4 g/dL (14.0-18.0); Mean Corpuscular HGB CONC 32.9 g/dL (32.0-36.0); Mean Corpuscular Hemoglobin 30.5 pg (27.0-31.0); Mean Corpuscular Volume 92.5 fL (78.0-98.0); Mean Platelet Volume 11.2 fL (7.4-10.4); Platelet Count 31 thou/uL (130-400); RBC Distribution Width 16.7 % (11.5-14.5); Red Blood Cell (RBC) Count 2.42 mill/uL (4.70-6.10); White Blood Cell (WBC) Count 2.3 thou/uL (4.8-10.8)
[2021-01-01] MEDS: Albumin 25% 25 GM/100 ML BOT IVPB SCH ×2 (02:32→08:00)
[2021-01-01 03:02] LABS: ALT (SGPT) 13 U/L (8-55); AST (SGOT) 89 U/L (5-34); Albumin 2.7 g/dL (3.5-5.0); Alkaline Phosphatase 107 U/L (40-110); Anion Gap 13 mmol/L (10-20); BUN (Urea Nitrogen) 21 mg/dL (8.4-25.7); Bilirubin, Total 5.5 mg/dL (0.2-1.2); Calc. Creatinine Clearance 113 mL/min (70-130); Calcium 7.4 mg/dL (7.8-10.44); Carbon Dioxide 28 mmol/L (22-29); Chloride 99 mmol/L (98-107); Globulin 3.3 g/dL (2.4-3.5); Glucose 122 mg/dL (70-105); Potassium 3.2 mmol/L (3.5-5.1); Sodium 137 mmol/L (136-145)
[2021-01-01 03:59] LABS: INR-International Normal Ratio 1.9; Prothrombin Time 22.5 sec (12.0-14.7)
[2021-01-01] MEDS: Pantoprazole 80 MG in Sodium Chloride 0.9% 100 ML IVPB SCH (04:52)
[2021-01-01] MEDS ORDERED: Electrolyte Replacement Protocol FS PRN (05:45)
[2021-01-01] MEDS ORDERED: Potassium Chloride 40 MEQ in Sodium Chloride 0.9% 250 ML 250 ML IVPB SCH (06:00)
[2021-01-01] MEDS ORDERED: Furosemide 20 MG/2 ML VIAL SLOW IVP SCH (06:00)
[2021-01-01 06:05] LABS: #Lymphocytes 0.5 thou/uL (1.20-3.40); #Monocytes 0.3 thou/uL (0.11-0.59); #Neutrophils 1.6 thou/uL (1.40-6.50); %Basophils 1.1 % (0.0-1.0); %Lymphocytes 21.1 % (21.0-51.0); %Monocytes 11.8 % (0.0-10.0); Hemoglobin 7.3 g/dL (14.0-18.0); Mean Corpuscular Hemoglobin 30.6 pg (27.0-31.0); Mean Corpuscular Volume 92.5 fL (78.0-98.0); Mean Platelet Volume 10.4 fL (7.4-10.4); Platelet Count 31 thou/uL (130-400); Red Blood Cell (RBC) Count 2.38 mill/uL (4.70-6.10); White Blood Cell (WBC) Count 2.5 thou/uL (4.8-10.8)
[2021-01-01] MEDS: Piperacillin/Tazobactam 3.375 GM in Sodium Chloride 0.9% 100 ML IVPB SCH ×4 (06:05→23:19)
[2021-01-01 06:20] LABS: Anion Gap 11 mmol/L (10-20); BUN (Urea Nitrogen) 20 mg/dL (8.4-25.7); Carbon Dioxide 29 mmol/L (22-29); Chloride 98 mmol/L (98-107); Potassium 3.3 mmol/L (3.5-5.1); Sodium 135 mmol/L (136-145)
[2021-01-01 06:21] LABS: ALT (SGPT) 17 U/L (8-55); AST (SGOT) 92 U/L (5-34); Albumin 2.9 g/dL (3.5-5.0); Alkaline Phosphatase 107 U/L (40-110); Bilirubin, Total 6.1 mg/dL (0.2-1.2); Calc. Creatinine Clearance 121 mL/min (70-130); Calcium 7.3 mg/dL (7.8-10.44); Globulin 3.3 g/dL (2.4-3.5); Glucose 135 mg/dL (70-105); Magnesium 1.8 mg/dL (1.6-2.6); Protein, Total 6.2 g/dL (6.0-8.3)
[2021-01-01] MEDS ORDERED: Norepinephrine 8 MG/0.9% NS 250 ML ONE ×2 (06:34→16:03)
[2021-01-01] MEDS ORDERED: Magnesium 2 GM/50 ML 2 GM in Premix Bag 1 BAG IVPB SCH (06:45)
[2021-01-01 06:49] LABS: Lactic Acid 1.6 mmol/L (0.5-2.2)
[2021-01-01] MEDS ORDERED: Propofol 1,000 MG/100 ML VIAL IV ONE (07:00)
[2021-01-01] MEDS ORDERED: Morphine 2 MG/ML VIAL SLOW IVP PRN (07:30)
[2021-01-01] MEDS ORDERED: Fentanyl BOLUS 250 ML IVPB PRN (07:30)
[2021-01-01] MEDS ORDERED: Propofol BOLUS 1,000 MG/100 ML VIAL IV PRN (07:30)
[2021-01-01] MEDS ORDERED: Fentanyl CADD 100 ML ONE (07:47)
[2021-01-01] MEDS: Lorazepam 2 MG/ML VIAL SLOW IVP PRN ×4 (07:54→23:19)
[2021-01-01] MEDS ORDERED: Vecuronium 10 MG VIAL ONE (08:10)
[2021-01-01 08:30] LABS: #Lymphocytes 0.2 thou/uL (1.20-3.40); #Monocytes 0.1 thou/uL (0.11-0.59); #Neutrophils 2.7 thou/uL (1.40-6.50); %Basophils 1.5 % (0.0-1.0); %Eosinophils 0.8 % (0.0-10.0); %Lymphocytes 6.9 % (21.0-51.0); %Monocytes 4.3 % (0.0-10.0); %Neutrophils 86.6 % (42.0-75.0); Hemoglobin 8.2 g/dL (14.0-18.0); Mean Corpuscular HGB CONC 31.8 g/dL (32.0-36.0); Mean Corpuscular Volume 94.5 fL (78.0-98.0); Mean Platelet Volume 10.2 fL (7.4-10.4); Platelet Count 34 thou/uL (130-400); RBC Distribution Width 17.2 % (11.5-14.5); Red Blood Cell (RBC) Count 2.72 mill/uL (4.70-6.10); White Blood Cell (WBC) Count 3.1 thou/uL (4.8-10.8)
[2021-01-01 09:12] LABS: Actual Bicarbonate (HCO3a) 29.1 mEq/L (22-28); Base Excess (BEa) 5.2 mEq/L (-2.0 to +3.0); CO2 Tension 39.9 mmHg (35.0-45.0); Calcium, Ionized (arterial) 0.96 mmol/L (1.12-1.30); Hemoglobin (Hb) 8.3 g/dL (14.0-18.0); O2 Tension (PaO2), arterial 61.2 mmHg (> 80.0); Potassium - ABG Lab 2.96 mmol/L (3.70-5.30); pH, Arterial 7.48 (7.35-7.45)
[2021-01-01 09:13] LABS: Puncture Site RRA
[2021-01-01 09:14] LABS: ALV-art Gradient 245.425 mmHg (0-20)
[2021-01-01] MEDS ORDERED: Vecuronium 10 MG VIAL IV SCH (10:00)
[2021-01-01] MEDS: HumaLOG 300 UNITS/3 ML VIAL SC PRN ×2 (10:53→16:49)
[2021-01-01] MEDS ORDERED: Spironolactone 100 MG TAB PO SCH (11:00)
[2021-01-01] MEDS: Multivitamins, Adult 10 ML, Folic Acid 1 MG in Dextrose 5 %-0.45 % NaCl 1,000 ML IV SCH ×2 (11:24→21:33)
[2021-01-01] MEDS: Thiamine HCl 200 MG/2 ML VIAL SLOW IVP SCH (11:25)
[2021-01-01 12:19] LABS: #Lymphocytes 0.3 thou/uL (1.20-3.40); #Monocytes 0.1 thou/uL (0.11-0.59); #Neutrophils 1.7 thou/uL (1.40-6.50); %Basophils 0.3 % (0.0-1.0); %Eosinophils 1.1 % (0.0-10.0); %Neutrophils 79.6 % (42.0-75.0); Hemoglobin 6.8 g/dL (14.0-18.0); Mean Corpuscular HGB CONC 32.5 g/dL (32.0-36.0); Mean Corpuscular Hemoglobin 30.5 pg (27.0-31.0); Mean Corpuscular Volume 93.6 fL (78.0-98.0); Mean Platelet Volume 8.8 fL (7.4-10.4); Platelet Count 38 thou/uL (130-400); RBC Distribution Width 16.8 % (11.5-14.5); Red Blood Cell (RBC) Count 2.23 mill/uL (4.70-6.10); White Blood Cell (WBC) Count 2.2 thou/uL (4.8-10.8)
[2021-01-01 13:26] LABS: Phosphorus 2.2 mg/dL (2.3-4.7)
[2021-01-01] MEDS ORDERED: EPINEPHrine 1 MG/10 ML Abboject SYRINGE ONE (13:55)
[2021-01-01] MEDS: Furosemide 40 MG/4 ML VIAL SLOW IVP SCH (14:20)
[2021-01-01 15:08] LABS: #Eosinphils 0.1 thou/uL (0.0-0.7); #Lymphocytes 0.4 thou/uL (1.20-3.40); #Monocytes 0.1 thou/uL (0.11-0.59); #Neutrophils 2.1 thou/uL (1.40-6.50); %Basophils 0.6 % (0.0-1.0); %Eosinophils 2.7 % (0.0-10.0); %Lymphocytes 15.9 % (21.0-51.0); %Neutrophils 75.8 % (42.0-75.0); Hemoglobin 7.9 g/dL (14.0-18.0); Mean Corpuscular HGB CONC 32.9 g/dL (32.0-36.0); Mean Corpuscular Hemoglobin 30.2 pg (27.0-31.0); Mean Corpuscular Volume 92.1 fL (78.0-98.0); Mean Platelet Volume 9.4 fL (7.4-10.4); Platelet Count 36 thou/uL (130-400); RBC Distribution Width 16.3 % (11.5-14.5); Red Blood Cell (RBC) Count 2.62 mill/uL (4.70-6.10); White Blood Cell (WBC) Count 2.7 thou/uL (4.8-10.8)
[2021-01-01 19:43] LABS: Hemoglobin 8.3 g/dL (14.0-18.0); Platelet Count 38 thou/uL (130-400)
[2021-01-01] MEDS: Octreotide Acetate 1,250 MCG in Sodium Chloride 0.9% 250 ML 250 ML IVPB SCH (19:46)
[2021-01-01] MEDS: Nicotine 14 MG PATCH TD SCH (20:59)
[2021-01-01] MEDS: Vecuronium 10 MG VIAL IV PRN (21:00)
[2021-01-02] MEDS ORDERED: Fentanyl CADD 100 ML ONE ×2 (01:18→20:07)
[2021-01-02] MEDS: Propofol 1,000 MG/100 ML VIAL IV PRN ×3 (01:28→19:09)
[2021-01-02] MEDS: Fentanyl CADD 100 ML IV SCH ×2 (02:41→22:10)
[2021-01-02] MEDS: Norepinephrine 8 MG/0.9% NS 250 ML IVPB SCH ×3 (03:05→18:25)
[2021-01-02] MEDS: Pantoprazole 80 MG, Admixture Fee 1 EACH in Sodium Chloride 0.9% 100 ML IVPB SCH ×2 (03:50→07:41)
[2021-01-02] MEDS: Vecuronium 10 MG VIAL IV PRN (04:26)
[2021-01-02 04:35] LABS: ALT (SGPT) 14 U/L (8-55); AST (SGOT) 74 U/L (5-34); Albumin 2.7 g/dL (3.5-5.0); Alkaline Phosphatase 91 U/L (40-110); Anion Gap 13 mmol/L (10-20); BUN (Urea Nitrogen) 19 mg/dL (8.4-25.7); Bilirubin, Total 7.2 mg/dL (0.2-1.2); Calc. Creatinine Clearance 108 mL/min (70-130); Calcium 7.2 mg/dL (7.8-10.44); Carbon Dioxide 30 mmol/L (22-29); Chloride 99 mmol/L (98-107); Globulin 2.9 g/dL (2.4-3.5); Glucose 149 mg/dL (70-105); Iron 19 ug/dL (65-175); Iron Binding Capacity, Total 185 mcg/dL (261-462); Magnesium 1.7 mg/dL (1.6-2.6); Phosphorus 2.5 mg/dL (2.3-4.7); Protein, Total 5.6 g/dL (6.0-8.3); Sodium 139 mmol/L (136-145)
[2021-01-02 04:45] LABS: Band 41 % (5-11); Eosinophils 2 % (0-10); Hemoglobin 8.3 g/dL (14.0-18.0); Hypochromia SLIGHT = 6-15 cells (100X) (0-5/hpf); Lymphocytes 8 % (21-51); MDiff Complete? YES; Mean Corpuscular HGB CONC 32.4 g/dL (32.0-36.0); Mean Corpuscular Hemoglobin 30.1 pg (27.0-31.0); Mean Corpuscular Volume 92.8 fL (78.0-98.0); Mean Platelet Volume 10.3 fL (7.4-10.4); Monocytes 3 % (0-10); Neutrophil 45 % (42-75); Platelet Count 40 thou/uL (130-400); Platelet Morphology Comment Appears Decreased; Potassium 2.7 mmol/L (3.5-5.1); Red Blood Cell (RBC) Count 2.75 mill/uL (4.70-6.10); White Blood Cell (WBC) Count 4.3 thou/uL (4.8-10.8)
[2021-01-02 04:51] LABS: Ferritin 85.59 ng/mL (22-322)
[2021-01-02] MEDS: Furosemide 40 MG/4 ML VIAL SLOW IVP SCH (05:04)
[2021-01-02] MEDS: Piperacillin/Tazobactam 3.375 GM in Sodium Chloride 0.9% 100 ML IVPB SCH ×4 (05:04→23:06)
[2021-01-02] MEDS: HumaLOG 300 UNITS/3 ML VIAL SC PRN ×2 (05:07→22:12)
[2021-01-02 05:12] LABS: HBCM Index 0.08 S/CO (0-0.79); HBSAg Index 0.22 S/CO (0-0.99); Hep A IgM AB Non-Reactive (NonReactive); Hep A IgM S/CO 0.11 S/CO (0-0.79); Hep B Surf Ag Non-Reactive S/CO (NonReactive); Hep C IgG Ab Non-Reactive (NonReactive); Hep C Index 0.19 S/CO (0-0.79); Hepatitis B Core IgM Abs Non-Reactive (NonReactive)
[2021-01-02] MEDS ORDERED: Magnesium 2 GM/50 ML 2 GM in Premix Bag 1 BAG IVPB SCH (05:30)
[2021-01-02 07:02] LABS: Actual Bicarbonate (HCO3a) 32.6 mEq/L (22-28); Base Excess (BEa) 8.4 mEq/L (-2.0 to +3.0); CO2 Tension 43.4 mmHg (35.0-45.0); Calcium, Ionized (arterial) 0.97 mmol/L (1.12-1.30); Carboxyhemoglobin (COHb) 0.4 gm% (0.0-3.0); Hemoglobin (Hb) 9.4 g/dL (14.0-18.0); Potassium - ABG Lab 2.47 mmol/L (3.70-5.30); pH, Arterial 7.49 (7.35-7.45)
[2021-01-02] MEDS: Lorazepam 2 MG/ML VIAL SLOW IVP PRN ×4 (07:04→20:15)
[2021-01-02] MEDS: Potassium Chloride 40 MEQ in Premix Bag 1 BAG IVPB SCH ×2 (07:05→09:50)
[2021-01-02 07:06] LABS: O2 Tension (PaO2), arterial 48.2 mmHg (> 80.0); Puncture Site RRA
[2021-01-02] MEDS: Multivitamins, Adult 10 ML, Folic Acid 1 MG in Dextrose 5 %-0.45 % NaCl 1,000 ML IV SCH ×2 (07:06→23:06)
[2021-01-02] MEDS: Octreotide Acetate 1,250 MCG in Sodium Chloride 0.9% 250 ML 250 ML IVPB SCH ×2 (07:06→20:15)
[2021-01-02] MEDS: Spironolactone 100 MG TAB PO SCH (07:46)
[2021-01-02] MEDS: Albumin 25% 25 GM/100 ML BOT IVPB SCH ×3 (10:31→20:15)
[2021-01-02] MEDS: Thiamine HCl 200 MG/2 ML VIAL SLOW IVP SCH (10:31)
[2021-01-02 11:36] LABS: ANA Symphony (Qualitative) Negative (Negative); ANA Symphony (Quantitative) 0.3 Ratio (< 0.7 Negative); EliA Vaculitis New Method **** NEW METHOD ****; Mitochondrial Ab 1.4 U/mL (<4 Negative); dsDNA IgG Antibody 0.8 IU/mL (<10 Negative)
[2021-01-02 17:25] LABS: Potassium 3.1 mmol/L (3.5-5.1)
[2021-01-02] MEDS ORDERED: Potassium Chloride 40 MEQ in Premix Bag 1 BAG IVPB SCH (18:45)
[2021-01-02] MEDS: Nicotine 14 MG PATCH TD SCH (20:15)
[2021-01-03 00:21] LABS: Potassium 3.1 mmol/L (3.5-5.1)
[2021-01-03] MEDS: Pantoprazole 80 MG, Admixture Fee 1 EACH in Sodium Chloride 0.9% 100 ML IVPB SCH ×3 (01:15→22:24)
[2021-01-03] MEDS ORDERED: Potassium Chloride 40 MEQ in Premix Bag 1 BAG IVPB SCH (03:00)
[2021-01-03] MEDS: Norepinephrine 8 MG/0.9% NS 250 ML IVPB SCH ×3 (03:04→19:28)
[2021-01-03] MEDS: Lorazepam 2 MG/ML VIAL SLOW IVP PRN ×4 (03:18→23:45)
[2021-01-03] MEDS: Propofol 1,000 MG/100 ML VIAL IV PRN ×2 (03:18→10:08)
[2021-01-03] MEDS: Albumin 25% 25 GM/100 ML BOT IVPB SCH ×2 (03:45→10:09)
[2021-01-03 05:05] LABS: ALT (SGPT) 13 U/L (8-55); AST (SGOT) 71 U/L (5-34); Alkaline Phosphatase 84 U/L (40-110); Anion Gap 11 mmol/L (10-20); BUN (Urea Nitrogen) 14 mg/dL (8.4-25.7); Bilirubin, Total 8.7 mg/dL (0.2-1.2); Calc. Creatinine Clearance 104 mL/min (70-130); Calcium 7.5 mg/dL (7.8-10.44); Carbon Dioxide 30 mmol/L (22-29); Chloride 100 mmol/L (98-107); Globulin 2.5 g/dL (2.4-3.5); Glucose 155 mg/dL (70-105); Magnesium 1.8 mg/dL (1.6-2.6); Phosphorus 1.8 mg/dL (2.3-4.7); Protein, Total 5.5 g/dL (6.0-8.3); Sodium 138 mmol/L (136-145)
[2021-01-03 05:08] LABS: Hemoglobin 7.9 g/dL (14.0-18.0); Mean Corpuscular HGB CONC 32.2 g/dL (32.0-36.0); Mean Corpuscular Hemoglobin 30.3 pg (27.0-31.0); Mean Corpuscular Volume 94.2 fL (78.0-98.0); Mean Platelet Volume 11.2 fL (7.4-10.4); Platelet Count 34 thou/uL (130-400); RBC Distribution Width 17.2 % (11.5-14.5); Red Blood Cell (RBC) Count 2.61 mill/uL (4.70-6.10); White Blood Cell (WBC) Count 3.7 thou/uL (4.8-10.8)
[2021-01-03 05:28] LABS: Band 1 % (5-11); Eosinophils 6 % (0-10); Lymphocytes 14 % (21-51); MDiff Complete? YES; Monocytes 12 % (0-10); Neutrophil 67 % (42-75); Platelet Morphology Comment Appears Decreased
[2021-01-03] MEDS: Piperacillin/Tazobactam 3.375 GM in Sodium Chloride 0.9% 100 ML IVPB SCH ×4 (05:44→23:45)
[2021-01-03] MEDS ORDERED: Magnesium 2 GM/50 ML 2 GM in Premix Bag 1 BAG IVPB SCH (05:45)
[2021-01-03] MEDS: Vecuronium 10 MG VIAL IV PRN (05:45)
[2021-01-03] MEDS ORDERED: Potassium Phosphate 15 MMOL in Sodium Chloride 0.9% 100 ML IVPB SCH (06:00)
[2021-01-03 06:57] LABS: Actual Bicarbonate (HCO3a) 27.2 mEq/L (22-28); Base Excess (BEa) 2.8 mEq/L (-2.0 to +3.0); CO2 Tension 41.1 mmHg (35.0-45.0); Calcium, Ionized (arterial) 1.03 mmol/L (1.12-1.30); Carboxyhemoglobin (COHb) 0.6 gm% (0.0-3.0); Hemoglobin (Hb) 8.4 g/dL (14.0-18.0); Potassium - ABG Lab 3.24 mmol/L (3.70-5.30); pH, Arterial 7.44 (7.35-7.45)
[2021-01-03 06:58] LABS: ALV-art Gradient 321.625 mmHg (0-20); O2 Tension (PaO2), arterial 54.8 mmHg (> 80.0); Puncture Site RRA
[2021-01-03] MEDS: Spironolactone 100 MG TAB PO SCH ×2 (08:03→20:23)
[2021-01-03] MEDS ORDERED: Potassium Phosphate 30 MMOL in Sodium Chloride 0.9% 500 ML IVPB SCH (09:00)
[2021-01-03] MEDS ORDERED: Potassium Phosphate 30 MMOL in Sodium Chloride 0.9% 250 ML 250 ML IVPB SCH (10:00)
[2021-01-03] MEDS: Octreotide Acetate 1,250 MCG in Sodium Chloride 0.9% 250 ML 250 ML IVPB SCH (10:08)
[2021-01-03] MEDS: Thiamine HCl 200 MG/2 ML VIAL SLOW IVP SCH (10:10)
[2021-01-03 15:50] LABS: Anion Gap 13 mmol/L (10-20); BUN (Urea Nitrogen) 13 mg/dL (8.4-25.7); Calc. Creatinine Clearance 115 mL/min (70-130); Calcium 7.8 mg/dL (7.8-10.44); Carbon Dioxide 29 mmol/L (22-29); Chloride 103 mmol/L (98-107); Glucose 138 mg/dL (70-105); Potassium 3.6 mmol/L (3.5-5.1); Sodium 141 mmol/L (136-145)
[2021-01-03] MEDS: Nicotine 14 MG PATCH TD SCH (20:23)
[2021-01-04] MEDS: Lorazepam 2 MG/ML VIAL SLOW IVP PRN ×5 (01:14→09:58)
[2021-01-04] MEDS: Norepinephrine 8 MG/0.9% NS 250 ML IVPB SCH ×2 (04:34→14:58)
[2021-01-04 04:40] LABS: Band 16 % (5-11); Eosinophils 7 % (0-10); Lymphocytes 8 % (21-51); MDiff Complete? YES; Mean Corpuscular HGB CONC 32.8 g/dL (32.0-36.0); Mean Corpuscular Hemoglobin 31.4 pg (27.0-31.0); Mean Corpuscular Volume 95.8 fL (78.0-98.0); Mean Platelet Volume 11.2 fL (7.4-10.4); Monocytes 26 % (0-10); Neutrophil 43 % (42-75); Platelet Count 30 thou/uL (130-400); Platelet Morphology Comment Appears Decreased; RBC Distribution Width 17.9 % (11.5-14.5); Red Blood Cell (RBC) Count 2.55 mill/uL (4.70-6.10); White Blood Cell (WBC) Count 4.4 thou/uL (4.8-10.8)
[2021-01-04] MEDS: Propofol 1,000 MG/100 ML VIAL IV PRN ×2 (04:46→18:36)
[2021-01-04] MEDS: Piperacillin/Tazobactam 3.375 GM in Sodium Chloride 0.9% 100 ML IVPB SCH ×3 (05:09→17:55)
[2021-01-04 05:17] LABS: ALT (SGPT) 16 U/L (8-55); AST (SGOT) 75 U/L (5-34); Alkaline Phosphatase 87 U/L (40-110); Anion Gap 9 mmol/L (10-20); BUN (Urea Nitrogen) 15 mg/dL (8.4-25.7); Bilirubin, Total 10.2 mg/dL (0.2-1.2); Calc. Creatinine Clearance 96 mL/min (70-130); Calcium 8.1 mg/dL (7.8-10.44); Carbon Dioxide 31 mmol/L (22-29); Chloride 103 mmol/L (98-107); Globulin 2.8 g/dL (2.4-3.5); Glucose 143 mg/dL (70-105); Phosphorus 2.8 mg/dL (2.3-4.7); Potassium 3.5 mmol/L (3.5-5.1); Protein, Total 5.8 g/dL (6.0-8.3); Sodium 139 mmol/L (136-145)
[2021-01-04] MEDS: Potassium Chloride 20 MEQ in Premix Bag 1 BAG IVPB SCH ×2 (06:48→09:59)
[2021-01-04] MEDS ORDERED: Furosemide 20 MG/2 ML VIAL SLOW IVP SCH (09:00)
[2021-01-04] MEDS: Spironolactone 100 MG TAB PO SCH ×2 (09:59→20:06)
[2021-01-04] MEDS: Thiamine HCl 200 MG/2 ML VIAL SLOW IVP SCH (11:29)
[2021-01-04] MEDS: Multivitamins, Adult 10 ML, Folic Acid 1 MG in Dextrose 5 %-0.45 % NaCl 1,000 ML IV SCH (11:39)
[2021-01-04] MEDS: Hydrocortisone Sod Succ/PF 100 mg/2 ml Vial IVP SCH ×2 (13:01→20:06)
[2021-01-04] MEDS ORDERED: Lidocaine 1% PF 5 ML VIAL ONE (13:12)
[2021-01-04] MEDS ORDERED: Sodium Bicarbonate 2.5 MEQ/5 ML VIAL ONE (13:13)
[2021-01-04 13:38] LABS: Smooth Muscle Total ABS 36 Units (0-19)
[2021-01-04] MEDS ORDERED: Fentanyl CADD 100 ML ONE (16:15)
[2021-01-04] MEDS: HumaLOG 300 UNITS/3 ML VIAL SC PRN ×2 (16:36→20:25)
[2021-01-04] MEDS: Fentanyl CADD 100 ML IV SCH (16:37)
[2021-01-04] MEDS: Pantoprazole 80 MG, Admixture Fee 1 EACH in Sodium Chloride 0.9% 100 ML IVPB SCH (18:36)
[2021-01-04] MEDS: Nicotine 14 MG PATCH TD SCH (20:06)
[2021-01-05] MEDS: Piperacillin/Tazobactam 3.375 GM in Sodium Chloride 0.9% 100 ML IVPB SCH ×4 (00:30→18:06)
[2021-01-05] MEDS: Pantoprazole 80 MG, Admixture Fee 1 EACH in Sodium Chloride 0.9% 100 ML IVPB SCH ×2 (01:52→12:21)
[2021-01-05] MEDS: Norepinephrine 8 MG/0.9% NS 250 ML IVPB SCH (04:08)
[2021-01-05] MEDS: Hydrocortisone Sod Succ/PF 100 mg/2 ml Vial IVP SCH ×3 (04:08→21:08)
[2021-01-05] MEDS: HumaLOG 300 UNITS/3 ML VIAL SC PRN ×3 (05:42→16:52)
[2021-01-05 05:43] LABS: Anisocytosis SLIGHT = 6-15 cells (100X) (0-5/hpf); Band 32 % (5-11); Hemoglobin 8.1 g/dL (14.0-18.0); Lymphocytes 5 % (21-51); MDiff Complete? YES; Mean Corpuscular HGB CONC 31.7 g/dL (32.0-36.0); Mean Corpuscular Hemoglobin 30.8 pg (27.0-31.0); Mean Corpuscular Volume 97.1 fL (78.0-98.0); Monocytes 15 % (0-10); Neutrophil 47 % (42-75); Platelet Count 37 thou/uL (130-400); Platelet Morphology Comment Appears Decreased; RBC Distribution Width 18.2 % (11.5-14.5); Reactive Lymphocytes 1 % (0-10); Red Blood Cell (RBC) Count 2.62 mill/uL (4.70-6.10); White Blood Cell (WBC) Count 4.9 thou/uL (4.8-10.8)
[2021-01-05 07:12] LABS: Mean Corpuscular HGB CONC 32.5 g/dL (32.0-36.0); Mean Corpuscular Hemoglobin 31.4 pg (27.0-31.0); Mean Corpuscular Volume 96.5 fL (78.0-98.0); Mean Platelet Volume 11.1 fL (7.4-10.4); Platelet Count 38 thou/uL (130-400); RBC Distribution Width 17.9 % (11.5-14.5); Red Blood Cell (RBC) Count 2.55 mill/uL (4.70-6.10); White Blood Cell (WBC) Count 4.9 thou/uL (4.8-10.8)
[2021-01-05 07:24] LABS: ALT (SGPT) 16 U/L (8-55); AST (SGOT) 60 U/L (5-34); Albumin 2.9 g/dL (3.5-5.0); Alkaline Phosphatase 91 U/L (40-110); Anion Gap 10 mmol/L (10-20); BUN (Urea Nitrogen) 27 mg/dL (8.4-25.7); Bilirubin, Total 9.7 mg/dL (0.2-1.2); Calc. Creatinine Clearance 88 mL/min (70-130); Calcium 8.3 mg/dL (7.8-10.44); Carbon Dioxide 29 mmol/L (22-29); Chloride 105 mmol/L (98-107); Globulin 3.2 g/dL (2.4-3.5); Glucose 235 mg/dL (70-105); INR-International Normal Ratio 2.2; Potassium 4.1 mmol/L (3.5-5.1); Protein, Total 6.1 g/dL (6.0-8.3); Prothrombin Time 24.7 sec (12.0-14.7); Sodium 140 mmol/L (136-145)
[2021-01-05] MEDS: Furosemide 20 MG/2 ML VIAL SLOW IVP SCH ×2 (09:05→21:08)
[2021-01-05] MEDS: Spironolactone 100 MG TAB PO SCH ×2 (09:13→21:08)
[2021-01-05] MEDS: Propofol 1,000 MG/100 ML VIAL IV PRN (11:58)
[2021-01-05] MEDS: Multivitamins, Adult 10 ML, Folic Acid 1 MG in Dextrose 5 %-0.45 % NaCl 1,000 ML IV SCH (12:21)
[2021-01-05] MEDS: Thiamine HCl 200 MG/2 ML VIAL SLOW IVP SCH (12:36)
[2021-01-05] MEDS: Pantoprazole 40 MG VIAL IVP SCH (21:07)
[2021-01-05] MEDS: Nicotine 14 MG PATCH TD SCH (21:08)
[2021-01-06] MEDS: Piperacillin/Tazobactam 3.375 GM in Sodium Chloride 0.9% 100 ML IVPB SCH ×4 (00:54→17:50)
[2021-01-06] MEDS: Propofol 1,000 MG/100 ML VIAL IV PRN ×2 (03:19→15:07)
[2021-01-06 03:54] LABS: Mean Corpuscular HGB CONC 32.9 g/dL (32.0-36.0); Mean Corpuscular Hemoglobin 31.8 pg (27.0-31.0); Mean Corpuscular Volume 96.5 fL (78.0-98.0); Mean Platelet Volume 11.5 fL (7.4-10.4); Platelet Count 44 thou/uL (130-400); RBC Distribution Width 18.3 % (11.5-14.5); Red Blood Cell (RBC) Count 2.52 mill/uL (4.70-6.10); White Blood Cell (WBC) Count 5.1 thou/uL (4.8-10.8)
[2021-01-06 04:03] LABS: Prothrombin Time 22.9 sec (12.0-14.7)
[2021-01-06 04:14] LABS: ALT (SGPT) 19 U/L (8-55); AST (SGOT) 66 U/L (5-34); Albumin 2.7 g/dL (3.5-5.0); Alkaline Phosphatase 91 U/L (40-110); Anion Gap 14 mmol/L (10-20); BUN (Urea Nitrogen) 39 mg/dL (8.4-25.7); Bilirubin, Total 8.5 mg/dL (0.2-1.2); Calc. Creatinine Clearance 71 mL/min (70-130); Carbon Dioxide 25 mmol/L (22-29); Chloride 104 mmol/L (98-107); Globulin 3.2 g/dL (2.4-3.5); Glucose 275 mg/dL (70-105); Potassium 3.9 mmol/L (3.5-5.1); Protein, Total 5.9 g/dL (6.0-8.3); Sodium 139 mmol/L (136-145)
[2021-01-06] MEDS: Hydrocortisone Sod Succ/PF 100 mg/2 ml Vial IVP SCH ×3 (06:34→20:16)
[2021-01-06] MEDS: Pantoprazole 40 MG VIAL IVP SCH ×2 (08:56→20:17)
[2021-01-06] MEDS: Furosemide 20 MG/2 ML VIAL SLOW IVP SCH ×2 (08:56→10:00)
[2021-01-06] MEDS: Spironolactone 100 MG TAB PO SCH ×3 (08:56→20:17)
[2021-01-06] MEDS ORDERED: Lidocaine 1% (PF) 30 ML VIAL ONE (10:35)
[2021-01-06] MEDS ORDERED: Fentanyl CADD 100 ML ONE (11:05)
[2021-01-06] MEDS: Thiamine HCl 200 MG/2 ML VIAL SLOW IVP SCH (11:10)
[2021-01-06] MEDS ORDERED: Albumin 25% 25 GM/100 ML BOT IVPB SCH (11:45)
[2021-01-06] MEDS: Albumin 25% 25 GM/100 ML BOT IVPB SCH ×2 (11:55→11:58)
[2021-01-06] MEDS: HumaLOG 300 UNITS/3 ML VIAL SC PRN ×3 (12:39→21:23)
[2021-01-06 13:03] LABS: RBC Count-Automated (BF) 1463 /cu.mm; WBC/Nucleated-Auto (BF) 90 uL
[2021-01-06 13:04] LABS: BF Color Yellow; Body Fluid Source Ascites Body Fluid; Clarity Clear (Clear); Tube # EDTA
[2021-01-06] MEDS: Multivitamins, Adult 10 ML, Folic Acid 1 MG in Dextrose 5 %-0.45 % NaCl 1,000 ML IV SCH (13:16)
[2021-01-06 13:18] LABS: BF Segmented Neutrophils 38 %; Cell Count Non Hematic 36 %; Lymphocytes 26 %
[2021-01-06] MEDS: Midodrine HCl 5 MG TAB PO SCH ×2 (15:10→20:17)
[2021-01-06] MEDS: Octreotide Acetate 100 MCG/ML VIAL SC SCH ×2 (15:10→20:16)
[2021-01-06] MEDS: Nicotine 14 MG PATCH TD SCH (20:17)
[2021-01-07] MEDS: Piperacillin/Tazobactam 3.375 GM in Sodium Chloride 0.9% 100 ML IVPB SCH ×4 (00:18→17:36)
[2021-01-07 04:47] LABS: Hemoglobin 7.1 g/dL (14.0-18.0); Mean Corpuscular Hemoglobin 30.9 pg (27.0-31.0); Mean Corpuscular Volume 96.4 fL (78.0-98.0); Mean Platelet Volume 11.4 fL (7.4-10.4); Platelet Count 45 thou/uL (130-400); RBC Distribution Width 18.7 % (11.5-14.5); Red Blood Cell (RBC) Count 2.31 mill/uL (4.70-6.10); White Blood Cell (WBC) Count 3.4 thou/uL (4.8-10.8)
[2021-01-07 04:50] LABS: ALT (SGPT) 20 U/L (8-55); AST (SGOT) 64 U/L (5-34); Albumin 3.3 g/dL (3.5-5.0); Alkaline Phosphatase 83 U/L (40-110); Anion Gap 12 mmol/L (10-20); BUN (Urea Nitrogen) 55 mg/dL (8.4-25.7); Bilirubin, Total 7.8 mg/dL (0.2-1.2); Calc. Creatinine Clearance 62 mL/min (70-130); Calcium 8.5 mg/dL (7.8-10.44); Carbon Dioxide 27 mmol/L (22-29); Chloride 105 mmol/L (98-107); Globulin 2.9 g/dL (2.4-3.5); Glucose 364 mg/dL (70-105); Potassium 3.8 mmol/L (3.5-5.1); Protein, Total 6.2 g/dL (6.0-8.3); Sodium 140 mmol/L (136-145)
[2021-01-07 05:19] LABS: Prothrombin Time 23.5 sec (12.0-14.7)
[2021-01-07] MEDS: HumaLOG 300 UNITS/3 ML VIAL SC PRN ×4 (05:34→21:34)
[2021-01-07] MEDS: Hydrocortisone Sod Succ/PF 100 mg/2 ml Vial IVP SCH ×3 (05:34→21:12)
[2021-01-07] MEDS: Propofol 1,000 MG/100 ML VIAL IV PRN (08:02)
[2021-01-07] MEDS: Spironolactone 100 MG TAB PO SCH (08:39)
[2021-01-07] MEDS: Octreotide Acetate 100 MCG/ML VIAL SC SCH ×3 (08:39→21:12)
[2021-01-07] MEDS: Midodrine HCl 5 MG TAB PO SCH ×3 (08:39→21:12)
[2021-01-07] MEDS: Pantoprazole 40 MG VIAL IVP SCH ×2 (08:40→21:12)
[2021-01-07] MEDS: Lantus 1000 UNITS/10 ML VIAL SC SCH (08:50)
[2021-01-07] MEDS ORDERED: Albumin 25% 25 GM/100 ML BOT IVPB SCH (10:53)
[2021-01-07] MEDS: Thiamine HCl 200 MG/2 ML VIAL SLOW IVP SCH (11:09)
[2021-01-07] MEDS ORDERED: Vancomycin 1.5 GRAM/300 ML BAG 1.5 GM in Premix Bag 1 BAG IVPB SCH (13:00)
[2021-01-07 14:37] LABS: Alpha-1-Antitrypsin 133 mg/dL (101-187)
[2021-01-07] MEDS ORDERED: Vancomycin 1 GM in Premix Bag 1 BAG IVPB SCH (21:00)
[2021-01-07] MEDS: Nicotine 14 MG PATCH TD SCH (21:12)
[2021-01-08] MEDS: Propofol 1,000 MG/100 ML VIAL IV PRN (00:34)
[2021-01-08] MEDS: Piperacillin/Tazobactam 3.375 GM in Sodium Chloride 0.9% 100 ML IVPB SCH ×4 (00:34→17:32)
[2021-01-08] MEDS ORDERED: Fentanyl CADD 100 ML ONE ×3 (01:09→21:19)
[2021-01-08 04:51] LABS: INR-International Normal Ratio 2.2; Prothrombin Time 24.7 sec (12.0-14.7)
[2021-01-08 05:07] LABS: Hemoglobin 7.3 g/dL (14.0-18.0); Mean Corpuscular HGB CONC 32.5 g/dL (32.0-36.0); Mean Corpuscular Hemoglobin 31.3 pg (27.0-31.0); Mean Corpuscular Volume 96.4 fL (78.0-98.0); Mean Platelet Volume 10.8 fL (7.4-10.4); Platelet Count 52 thou/uL (130-400); RBC Distribution Width 17.9 % (11.5-14.5); Red Blood Cell (RBC) Count 2.32 mill/uL (4.70-6.10); White Blood Cell (WBC) Count 4.2 thou/uL (4.8-10.8)
[2021-01-08 05:13] LABS: ALT (SGPT) 18 U/L (8-55); AST (SGOT) 44 U/L (5-34); Albumin 3.5 g/dL (3.5-5.0); Alkaline Phosphatase 75 U/L (40-110); Anion Gap 12 mmol/L (10-20); BUN (Urea Nitrogen) 58 mg/dL (8.4-25.7); Bilirubin, Total 7.9 mg/dL (0.2-1.2); Calc. Creatinine Clearance 0 mL/min (70-130); Calcium 8.7 mg/dL (7.8-10.44); Carbon Dioxide 28 mmol/L (22-29); Chloride 107 mmol/L (98-107); Globulin 2.7 g/dL (2.4-3.5); Glucose 385 mg/dL (70-105); Potassium 3.5 mmol/L (3.5-5.1); Protein, Total 6.2 g/dL (6.0-8.3); Sodium 143 mmol/L (136-145)
[2021-01-08] MEDS: Hydrocortisone Sod Succ/PF 100 mg/2 ml Vial IVP SCH ×3 (05:43→17:33)
[2021-01-08] MEDS: HumaLOG 300 UNITS/3 ML VIAL SC PRN ×4 (05:44→20:58)
[2021-01-08] MEDS: Potassium Chloride 20 MEQ in Premix Bag 1 BAG IVPB SCH ×2 (06:49→08:33)
[2021-01-08] MEDS: Midodrine HCl 5 MG TAB PO SCH ×3 (08:32→20:55)
[2021-01-08] MEDS: Octreotide Acetate 100 MCG/ML VIAL SC SCH ×3 (08:32→20:55)
[2021-01-08] MEDS: Pantoprazole 40 MG VIAL IVP SCH ×2 (08:33→20:56)
[2021-01-08] MEDS: Lantus 1000 UNITS/10 ML VIAL SC SCH ×2 (08:33→20:57)
[2021-01-08 11:40] LABS: Hemoglobin A1c 5.4 % (4.0-6.0)
[2021-01-08] MEDS: Thiamine HCl 200 MG/2 ML VIAL SLOW IVP SCH (11:40)
[2021-01-08] MEDS ORDERED: Spironolactone 100 MG TAB PO SCH (12:00)
[2021-01-08 12:22] LABS: Magnesium 2.4 mg/dL (1.6-2.6); Phosphorus 3.6 mg/dL (2.3-4.7)
[2021-01-08] MEDS: Nicotine 14 MG PATCH TD SCH (20:56)
[2021-01-08] MEDS: Fentanyl CADD 100 ML IV SCH (21:27)
[2021-01-09] MEDS: Piperacillin/Tazobactam 3.375 GM in Sodium Chloride 0.9% 100 ML IVPB SCH ×5 (00:32→23:34)
[2021-01-09] MEDS: Hydrocortisone Sod Succ/PF 100 mg/2 ml Vial IVP SCH ×2 (00:32→05:51)
[2021-01-09] MEDS: Lorazepam 2 MG/ML VIAL SLOW IVP PRN ×3 (00:32→17:15)
[2021-01-09] MEDS: Propofol 1,000 MG/100 ML VIAL IV PRN ×5 (00:32→22:41)
[2021-01-09 04:33] LABS: Hemoglobin 7.5 g/dL (14.0-18.0); Mean Corpuscular HGB CONC 32.3 g/dL (32.0-36.0); Mean Corpuscular Hemoglobin 31.5 pg (27.0-31.0); Mean Corpuscular Volume 97.4 fL (78.0-98.0); Mean Platelet Volume 10.5 fL (7.4-10.4); Platelet Count 62 thou/uL (130-400); RBC Distribution Width 18.8 % (11.5-14.5); Red Blood Cell (RBC) Count 2.39 mill/uL (4.70-6.10); White Blood Cell (WBC) Count 8.1 thou/uL (4.8-10.8)
[2021-01-09 04:40] LABS: INR-International Normal Ratio 2.2; Prothrombin Time 24.5 sec (12.0-14.7)
[2021-01-09 05:31] LABS: ALT (SGPT) 25 U/L (8-55); AST (SGOT) 47 U/L (5-34); Albumin 3.4 g/dL (3.5-5.0); Alkaline Phosphatase 78 U/L (40-110); Anion Gap 14 mmol/L (10-20); BUN (Urea Nitrogen) 47 mg/dL (8.4-25.7); Bilirubin, Total 8.8 mg/dL (0.2-1.2); Calc. Creatinine Clearance 89 mL/min (70-130); Calcium 8.6 mg/dL (7.8-10.44); Carbon Dioxide 27 mmol/L (22-29); Chloride 112 mmol/L (98-107); Glucose 456 mg/dL (70-105); Potassium 3.5 mmol/L (3.5-5.1); Protein, Total 6.4 g/dL (6.0-8.3); Sodium 149 mmol/L (136-145)
[2021-01-09] MEDS: HumaLOG 300 UNITS/3 ML VIAL SC PRN ×4 (05:52→21:32)
[2021-01-09] MEDS: Vecuronium 10 MG VIAL IV PRN ×2 (07:51→17:15)
[2021-01-09] MEDS: Midodrine HCl 5 MG TAB PO SCH ×3 (09:02→21:27)
[2021-01-09] MEDS: Octreotide Acetate 100 MCG/ML VIAL SC SCH ×3 (09:03→21:27)
[2021-01-09] MEDS: Spironolactone 100 MG TAB PO SCH ×2 (09:03→17:15)
[2021-01-09] MEDS: Pantoprazole 40 MG VIAL IVP SCH ×2 (09:03→21:26)
[2021-01-09] MEDS: Lantus 1000 UNITS/10 ML VIAL SC SCH ×2 (09:04→21:31)
[2021-01-09] MEDS: Thiamine HCl 200 MG/2 ML VIAL SLOW IVP SCH (10:44)
[2021-01-09] MEDS ORDERED: Potassium Chloride 40 MEQ in Sodium Chloride 0.9% 250 ML 250 ML IVPB SCH (11:00)
[2021-01-09] MEDS ORDERED: Fentanyl CADD 100 ML ONE (11:19)
[2021-01-09 13:23] VITALS: BMI 32.3
[2021-01-09] MEDS ORDERED: Dextrose 5% in Water 1,000 ML IV PRN (17:54)
[2021-01-09] MEDS ORDERED: Dextrose 50% Abboject 50 ML SYRINGE SLOW IVP PRN (17:54)
[2021-01-09] MEDS ORDERED: Furosemide 40 MG/4 ML VIAL SLOW IVP SCH (18:00)
[2021-01-09] MEDS ORDERED: Hydrocortisone Sod Succ/PF 100 mg/2 ml Vial IVP SCH (21:00)
[2021-01-09] MEDS: Nicotine 14 MG PATCH TD SCH (21:26)
[2021-01-09] MEDS: Furosemide 100 mg/100 ml in NS IVPB SCH (21:26)
[2021-01-10] MEDS ORDERED: Fentanyl CADD 100 ML ONE ×2 (01:02→15:43)
[2021-01-10] MEDS: Midodrine HCl 5 MG TAB PO SCH ×4 (01:24→21:19)
[2021-01-10] MEDS: HumaLOG 300 UNITS/3 ML VIAL SC PRN ×3 (03:34→16:37)
[2021-01-10 04:02] LABS: Hemoglobin 7.4 g/dL (14.0-18.0); Mean Corpuscular HGB CONC 31.6 g/dL (32.0-36.0); Mean Corpuscular Hemoglobin 31.3 pg (27.0-31.0); Mean Corpuscular Volume 98.9 fL (78.0-98.0); Mean Platelet Volume 11.5 fL (7.4-10.4); Platelet Count 60 thou/uL (130-400); RBC Distribution Width 18.6 % (11.5-14.5); Red Blood Cell (RBC) Count 2.37 mill/uL (4.70-6.10); White Blood Cell (WBC) Count 7.2 thou/uL (4.8-10.8)
[2021-01-10 04:08] LABS: ALT (SGPT) 27 U/L (8-55); AST (SGOT) 39 U/L (5-34); Alkaline Phosphatase 72 U/L (40-110); Anion Gap 12 mmol/L (10-20); BUN (Urea Nitrogen) 51 mg/dL (8.4-25.7); Bilirubin, Total 7.4 mg/dL (0.2-1.2); Calc. Creatinine Clearance 87 mL/min (70-130); Calcium 8.4 mg/dL (7.8-10.44); Carbon Dioxide 28 mmol/L (22-29); Chloride 113 mmol/L (98-107); Globulin 2.7 g/dL (2.4-3.5); Glucose 406 mg/dL (70-105); INR-International Normal Ratio 2.3; Protein, Total 5.8 g/dL (6.0-8.3); Prothrombin Time 25.5 sec (12.0-14.7); Sodium 151 mmol/L (136-145)
[2021-01-10 04:10] LABS: Potassium 2.8 mmol/L (3.5-5.1)
[2021-01-10] MEDS: Potassium Bicarbonate/Cit Ac 20 MEQ TAB PER TUBE SCH ×2 (04:27→10:34)
[2021-01-10] MEDS: Piperacillin/Tazobactam 3.375 GM in Sodium Chloride 0.9% 100 ML IVPB SCH (05:22)
[2021-01-10 07:22] LABS: Actual Bicarbonate (HCO3a) 26.3 mEq/L (22-28); Base Excess (BEa) 1.6 mEq/L (-2.0 to +3.0); Calcium, Ionized (arterial) 1.19 mmol/L (1.12-1.30); Carboxyhemoglobin (COHb) 0.5 gm% (0.0-3.0); Hemoglobin (Hb) 8.2 g/dL (14.0-18.0); O2 Tension (PaO2), arterial 211.7 mmHg (> 80.0); Potassium - ABG Lab 2.89 mmol/L (3.70-5.30); pH, Arterial 7.42 (7.35-7.45)
[2021-01-10 07:27] LABS: Puncture Site LRA
[2021-01-10] MEDS ORDERED: Potassium Chloride 40 MEQ in Premix Bag 1 BAG IVPB SCH (07:30)
[2021-01-10] MEDS ORDERED: Metolazone 5 MG TAB PO SCH (08:45)
[2021-01-10] MEDS ORDERED: Potassium Phosphate 30 MMOL in Sodium Chloride 0.9% 250 ML 250 ML IVPB SCH (08:45)
[2021-01-10 09:51] LABS: Magnesium 2.3 mg/dL (1.6-2.6); Phosphorus 3.1 mg/dL (2.3-4.7)
[2021-01-10] MEDS: Octreotide Acetate 100 MCG/ML VIAL SC SCH ×3 (10:26→21:31)
[2021-01-10] MEDS: Propofol 1,000 MG/100 ML VIAL IV PRN ×2 (10:26→19:18)
[2021-01-10] MEDS: Spironolactone 100 MG TAB PO SCH ×2 (10:27→10:28)
[2021-01-10] MEDS: Pantoprazole 40 MG VIAL IVP SCH ×2 (10:27→21:31)
[2021-01-10] MEDS: Lantus 1000 UNITS/10 ML VIAL SC SCH ×2 (10:29→21:32)
[2021-01-10] MEDS: Thiamine HCl 200 MG/2 ML VIAL SLOW IVP SCH (10:35)
[2021-01-10] MEDS: Potassium Chloride 20 MEQ in Premix Bag 1 BAG IVPB SCH ×4 (11:56→19:15)
[2021-01-10] MEDS: Fentanyl CADD 100 ML IV SCH (15:49)
[2021-01-10] MEDS: Furosemide 100 mg/100 ml in NS IVPB SCH (16:37)
[2021-01-10] MEDS: Nicotine 14 MG PATCH TD SCH (19:44)
[2021-01-10 22:27] LABS: Anion Gap 13 mmol/L (10-20); BUN (Urea Nitrogen) 62 mg/dL (8.4-25.7); Calc. Creatinine Clearance 82 mL/min (70-130); Calcium 8.7 mg/dL (7.8-10.44); Carbon Dioxide 30 mmol/L (22-29); Chloride 112 mmol/L (98-107); Glucose 210 mg/dL (70-105); Magnesium 2.2 mg/dL (1.6-2.6); Potassium 3.6 mmol/L (3.5-5.1); Sodium 151 mmol/L (136-145)
[2021-01-11 04:17] LABS: Hemoglobin 8.1 g/dL (14.0-18.0); Mean Corpuscular HGB CONC 31.7 g/dL (32.0-36.0); Mean Corpuscular Hemoglobin 31.1 pg (27.0-31.0); Mean Platelet Volume 8.8 fL (7.4-10.4); Platelet Count 51 thou/uL (130-400); RBC Distribution Width 18.7 % (11.5-14.5); Red Blood Cell (RBC) Count 2.59 mill/uL (4.70-6.10); White Blood Cell (WBC) Count 8.8 thou/uL (4.8-10.8)
[2021-01-11 04:33] LABS: Anion Gap 16 mmol/L (10-20); BUN (Urea Nitrogen) 64 mg/dL (8.4-25.7); Calc. Creatinine Clearance 81 mL/min (70-130); Calcium 8.7 mg/dL (7.8-10.44); Carbon Dioxide 28 mmol/L (22-29); Chloride 112 mmol/L (98-107); Glucose 131 mg/dL (70-105); Potassium 4.2 mmol/L (3.5-5.1); Sodium 152 mmol/L (136-145)
[2021-01-11] MEDS: Furosemide 100 mg/100 ml in NS IVPB SCH (06:26)
[2021-01-11] MEDS: Propofol 1,000 MG/100 ML VIAL IV PRN (06:26)
[2021-01-11 07:19] LABS: Actual Bicarbonate (HCO3a) 30.4 mEq/L (22-28); Base Excess (BEa) 7.3 mEq/L (-2.0 to +3.0); CO2 Tension 37.1 mmHg (35.0-45.0); Calcium, Ionized (arterial) 1.17 mmol/L (1.12-1.30); Carboxyhemoglobin (COHb) 0.1 gm% (0.0-3.0); Hemoglobin (Hb) 8.5 g/dL (14.0-18.0); Potassium - ABG Lab 3.48 mmol/L (3.70-5.30); pH, Arterial 7.53 (7.35-7.45)
[2021-01-11 07:20] LABS: ALV-art Gradient 281.425 mmHg (0-20); Puncture Site LRA
[2021-01-11] MEDS ORDERED: Metolazone 5 MG TAB PO SCH (08:30)
[2021-01-11] MEDS: Midodrine HCl 5 MG TAB PO SCH ×2 (10:03→15:20)
[2021-01-11] MEDS: Spironolactone 100 MG TAB PO SCH (10:04)
[2021-01-11] MEDS: Pantoprazole 40 MG VIAL IVP SCH (10:04)
[2021-01-11] MEDS: Octreotide Acetate 100 MCG/ML VIAL SC SCH ×2 (10:04→15:20)
[2021-01-11] MEDS: Lantus 1000 UNITS/10 ML VIAL SC SCH (10:05)
[2021-01-11] MEDS ORDERED: Hyoscyamine Sulfate SL 0.125 mg Tablet PO PRN (12:40)
[2021-01-11] MEDS ORDERED: Morphine 10 MG/ML VIAL SLOW IVP PRN (12:49)
[2021-01-11] MEDS ORDERED: Lorazepam 2 MG/ML VIAL SLOW IVP PRN (12:52)
[2021-01-11] MEDS ORDERED: Scopolamine 1.5 mg/72 hour Patch TD SCH (14:00)
[2021-01-11 15:13] VITALS: BP 126/68; TEMP 99.4
[2021-01-11] MEDS: Thiamine HCl 200 MG/2 ML VIAL SLOW IVP SCH (15:19)
== END 2021-01-11 15:57 | disposition hospice, inpatient (51) | DRG 432 ==
LOC: ERS 15:08 → IMCU/EMU 19:24 → CCU 01-01 06:50
PROVIDERS: ADMIT Internal Medicine; ATTEND Internal Medicine
PROC: 30233N1 Transfusion of Nonautologous Red Blood Cells into Peripheral Vein, Percutaneous Approach (ICD-10-PCS; 2020-12-30)
PROC: 30233L1 Transfusion of Nonautologous Fresh Plasma into Peripheral Vein, Percutaneous Approach (ICD-10-PCS; principal; 2020-12-31)
PROC: 30233K1 Transfusion of Nonautologous Frozen Plasma into Peripheral Vein, Percutaneous Approach (ICD-10-PCS; 2020-12-31)
PROC: 30233R1 Transfusion of Nonautologous Platelets into Peripheral Vein, Percutaneous Approach (ICD-10-PCS; 2020-12-31)
PROC: 3E033XZ Introduction of Vasopressor into Peripheral Vein, Percutaneous Approach (ICD-10-PCS; 2021-01-01)
PROC: 0BH17EZ Insertion of Endotracheal Airway into Trachea, Via Natural or Artificial Opening (ICD-10-PCS; 2021-01-01)
PROC: 5A1955Z Respiratory Ventilation, Greater than 96 Consecutive Hours (ICD-10-PCS; 2021-01-01)
PROC: 0W3P8ZZ Control Bleeding in Gastrointestinal Tract, Via Natural or Artificial Opening Endoscopic (ICD-10-PCS; 2021-01-01)
PROC: 0W9G3ZZ Drainage of Peritoneal Cavity, Percutaneous Approach (ICD-10-PCS; 2021-01-06)
PROC: 0DB78ZX Excision of Stomach, Pylorus, Via Natural or Artificial Opening Endoscopic, Diagnostic (ICD-10-PCS; 2021-01-10)
DX: K70.31 Alcoholic cirrhosis of liver with ascites (principal); K22.11 Ulcer of esophagus with bleeding; R57.8 Other shock; K72.00 Acute and subacute hepatic failure without coma; K76.7 Hepatorenal syndrome; J96.01 Acute respiratory failure with hypoxia; J15.6 Pneumonia due to other Gram-negative bacteria; I46.9 Cardiac arrest, cause unspecified; K76.6 Portal hypertension; E87.1 Hypo-osmolality and hyponatremia; E87.2 Acidosis; D61.818 Other pancytopenia; D68.4 Acquired coagulation factor deficiency; D62 Acute posthemorrhagic anemia; F10.239 Alcohol dependence with withdrawal, unspecified; N17.9 Acute kidney failure, unspecified; E87.3 Alkalosis; E27.40 Unspecified adrenocortical insufficiency; J81.1 Chronic pulmonary edema; E87.0 Hyperosmolality and hypernatremia; Z51.5 Encounter for palliative care; Z66 Do not resuscitate; Z23 Encounter for immunization; Z20.822 Contact with and (suspected) exposure to COVID-19; E11.65 Type 2 diabetes mellitus with hyperglycemia; K70.11 Alcoholic hepatitis with ascites; E88.09 Other disorders of plasma-protein metabolism, not elsewhere classified; K31.89 Other diseases of stomach and duodenum; D73.1 Hypersplenism; I12.9 Hypertensive chronic kidney disease with stage 1 through stage 4 chronic kidney disease, or unspecified chronic kidney disease; E11.22 Type 2 diabetes mellitus with diabetic chronic kidney disease; N18.9 Chronic kidney disease, unspecified; R04.1 Hemorrhage from throat; E87.6 Hypokalemia; E87.70 Fluid overload, unspecified; Z98.890 Other specified postprocedural states; Z79.899 Other long term (current) drug therapy
CPT/HCPCS: 36415; 36416; 36430; 36600; 49083; 70450; 71045; 74177; 76705; 80048; 80053; 80074; 81001; 82042; 82103; 82104; 82105; 82140; 82533; 82570; 82728; 82805; 83036; 83516; 83540; 83550; 83605; 83690; 83735; 84100; 84156; 84157; 84300; 84443; 84484; 84540; 85025; 85027; 85060; 85610; 85730; 86038; 86225; 86850; 86900; 86901; 87040; 87070; 87077; 87086; 87186; 87205; 88305; 88312; 89051; 93005; 93010; 94002; 94003; 96365; 96366; 96368; 96375; 96376; C9113; J0171; J0696; J1720; J1815; J1940; J2001; J2060; J2270; J2354; J2405; J2543; J2704; J2765; J3010; J3370; J3411; J3475; J3480; J3490; J7042; J7050; J7070; J7620; P9016; P9035; P9047; P9059; Q9967; S0028; U0002

== ENCOUNTER 2021-01-11 16:02 | Inpatient (IN) | payer OTHER ==
[2021-01-11] MEDS: Morphine 4 MG/ML VIAL ONE ×3 (16:20→18:29)
[2021-01-11] MEDS ORDERED: Lorazepam 2 MG/ML VIAL ONE (16:30)
[2021-01-11] MEDS ORDERED: Scopolamine 1.5 mg/72 hour Patch TOP PRN (16:45)
[2021-01-11] MEDS ORDERED: Haloperidol Lactate 5 MG/ML VIAL SLOW IVP PRN (16:45)
[2021-01-11] MEDS ORDERED: Ondansetron PF 4 MG/2 ML Vial IVP PRN (16:45)
[2021-01-11] MEDS ORDERED: Lorazepam 2 MG/ML VIAL SLOW IVP PRN ×2 (16:45→17:29)
[2021-01-11] MEDS ORDERED: diphenhydrAMINE 50 MG/ML VIAL IVP PRN (16:45)
[2021-01-11] MEDS ORDERED: Acetaminophen 325 MG TAB PO PRN (16:45)
[2021-01-11] MEDS ORDERED: Acetaminophen 650 MG Suppository PR PRN (16:45)
[2021-01-11] MEDS ORDERED: Morphine 4 MG/ML VIAL SLOW IVP PRN (17:28)
[2021-01-11 18:15] VITALS: BMI 32.5
[2021-01-11] MEDS: Lorazepam 2 MG/ML VIAL SLOW IVP SCH ×3 (18:43→21:48)
[2021-01-11] MEDS: Morphine 4 MG/ML VIAL SLOW IVP SCH ×3 (18:43→21:47)
[2021-01-12] MEDS: Morphine 4 MG/ML VIAL SLOW IVP SCH ×7 (00:10→12:55)
[2021-01-12] MEDS: Lorazepam 2 MG/ML VIAL SLOW IVP SCH ×7 (00:10→12:54)
[2021-01-12 08:36] VITALS: BP 134/73; TEMP 97.6
== END 2021-01-12 14:30 | disposition expired | DRG 951 ==
LOC: CCU 16:02 → T4-B 01-12 02:35
PROVIDERS: ADMIT Internal Medicine; ATTEND Internal Medicine
DX: Z51.5 Encounter for palliative care (principal); Z66 Do not resuscitate; Z20.822 Contact with and (suspected) exposure to COVID-19
CPT/HCPCS: J2060; J2270